=== PATIENT | female | born 1980 | race Caucasian/White ===

== ENCOUNTER 2020-10-13 12:02 | Outpatient (REF) | payer MEDICAID, SELFPAY | END 2020-10-13 12:03 | disposition home or self-care (01) | LOC: HO.LAB 12:02 | PROVIDERS: PCP Internal Medicine; Visit Provider Internal Medicine | DX: Z20.828 Contact with and (suspected) exposure to other viral communicable diseases (principal) | CPT/HCPCS: C9803; U0003 ==

== ENCOUNTER 2020-12-21 13:22 | Outpatient (REF) | payer MEDICAID, SELFPAY ==
[2020-12-22 09:18] LABS: BV Int Neg Control Negative (Negative); BV Int Pos Control Positive (Positive)
[2020-12-22 15:32] LABS: C. trachomatis RNA TMA NOT DETECTED (NOT DETECTED); N. gonorrhoeae RNA TMA NOT DETECTED (NOT DETECTED)
== END 2020-12-21 13:23 | disposition home or self-care (01) ==
LOC: HO.LAB 13:22
PROVIDERS: PCP Internal Medicine; Visit Provider Advanced Practice Midwife
DX: R10.2 Pelvic and perineal pain (principal); N94.10 Unspecified dyspareunia
CPT/HCPCS: 36415; 81003; 87480; 87491; 87510; 87591; 87660; 99212

== ENCOUNTER 2020-12-28 14:10 | Outpatient (REF) | payer MEDICAID, SELFPAY ==
--- NOTE | ~2020-12-28 | US_ITS ---
EXAMINATION: PELVIC ULTRASOUND CLINICAL INFORMATION: Pain COMPARISON: Previous pelvic ultrasound most recent February [address] of the abdomen and pelvis February 2020 TECHNIQUE: Transabdominal and transvaginal pelvic ultrasound was performed. Transvaginal exam was performed for better visualization of the uterus and ovaries. FINDINGS: The uterus is retroverted and measures 9.8 x 4.5 x 6.3 cm in dimension. No focal uterine lesion is seen. Endometrial thickness is normal measuring 0.7 cm. There are nabothian cysts in the cervix. The right ovary is enlarged and measures 4.7 x 4.1 x 4 cm, volume 40 mL. There is a new 3.9 x 3.5 x 3.3 cm complex cyst with multiple septations. The left ovary measures 2.7 x 1.5 x 2.4 cm. There is a cystic tubular structure adjacent to the left ovary in the left adnexa again questionable for hydrosalpinx. This is similar to previous exam. There is no fluid in the pelvis. US/US pelvic complete IMPRESSION: New 3.9 x 3.5 x 3.3 cm complex right ovarian cyst with multiple septations. This may represent a hemorrhagic cyst. Short-term follow-up pelvic ultrasound in 10-12 weeks following several menstrual cycles recommended. Stable appearing cystic tubular structure in the left adnexa again questionable for hydrosalpinx.
--- NOTE | ~2020-12-28 | US_ITS ---
EXAMINATION: PELVIC ULTRASOUND CLINICAL INFORMATION: Pain COMPARISON: Previous pelvic ultrasound most recent February [address] of the abdomen and pelvis February 2020 TECHNIQUE: Transabdominal and transvaginal pelvic ultrasound was performed. Transvaginal exam was performed for better visualization of the uterus and ovaries. FINDINGS: The uterus is retroverted and measures 9.8 x 4.5 x 6.3 cm in dimension. No focal uterine lesion is seen. Endometrial thickness is normal measuring 0.7 cm. There are nabothian cysts in the cervix. The right ovary is enlarged and measures 4.7 x 4.1 x 4 cm, volume 40 mL. There is a new 3.9 x 3.5 x 3.3 cm complex cyst with multiple septations. The left ovary measures 2.7 x 1.5 x 2.4 cm. There is a cystic tubular structure adjacent to the left ovary in the left adnexa again questionable for hydrosalpinx. This is similar to previous exam. There is no fluid in the pelvis. US/US transvaginal IMPRESSION: New 3.9 x 3.5 x 3.3 cm complex right ovarian cyst with multiple septations. This may represent a hemorrhagic cyst. Short-term follow-up pelvic ultrasound in 10-12 weeks following several menstrual cycles recommended. Stable appearing cystic tubular structure in the left adnexa again questionable for hydrosalpinx.
== END 2020-12-28 14:11 | disposition home or self-care (01) ==
LOC: HO.US 14:10
PROVIDERS: Visit Provider Advanced Practice Midwife
DX: R10.2 Pelvic and perineal pain (principal)
CPT/HCPCS: 76830; 76856

== ENCOUNTER → 2020-12-30 09:30 | Outpatient (BNVA) | payer MEDICAID, SELFPAY | PROVIDERS: PCP Internal Medicine; Visit Provider Advanced Practice Midwife | DX: Z71.2 Person consulting for explanation of examination or test findings (principal); R10.2 Pelvic and perineal pain; N70.11 Chronic salpingitis; N83.299 Other ovarian cyst, unspecified side | CPT/HCPCS: 99212 ==

== ENCOUNTER 2020-12-30 11:01 | Outpatient (REF) | payer MEDICAID, SELFPAY ==
[2020-12-31 05:42] LABS: CA-125 7 U/mL (<35)
[2020-12-31 20:51] LABS: C. trachomatis RNA TMA NOT DETECTED (NOT DETECTED); N. gonorrhoeae RNA TMA NOT DETECTED (NOT DETECTED)
== END 2020-12-30 11:02 | disposition home or self-care (01) ==
LOC: HO.LAB 11:01
PROVIDERS: PCP Internal Medicine; Visit Provider Advanced Practice Midwife
DX: N83.299 Other ovarian cyst, unspecified side (principal); R10.2 Pelvic and perineal pain
CPT/HCPCS: 36415; 86304; 87491; 87591

== ENCOUNTER 2021-02-12 14:46 | Emergency (ER) | payer MEDICAID, SELFPAY ==
--- NOTE | ~2021-02-12 | XR_ITS ---
EXAMINATION: XR CHEST CLINICAL INFORMATION: covid COMPARISON: 12/02/2018 TECHNIQUE: Frontal view of the chest was obtained. FINDINGS: Bilateral airspace opacities are seen here. Consistent with areas of infiltrate. No effusion. Indistinct mediastinal structures XR/XR chest 1V IMPRESSION: Bilateral airspace disease consistent with infiltrate given the history.
[2021-02-12 14:59] VITALS: BP 112/70; PULSE 100; RESP 18; TEMP 36.9; O2SAT 100; BMI 23.8
[2021-02-12 16:20] VITALS: BP 115/73; PULSE 91; RESP 20; TEMP 36.7; O2SAT 100
--- NOTE | 2021-02-12 16:24 | ED_ITS ---
HPI - General Adult General Chief complaint: General Medical Stated complaint: mutiple complaint Time Seen by Provider: 02/12/21 16:23 Source: patient Mode of arrival: ambulatory Limitations: language barrier History of Present Illness HPI narrative: Patient diagnosed with COVID on 02/01 since then not eating well feeling weak for last 2 days feeling dizzy especially when moving her head to right or left side. Also patient complaining of cough low-grade fever no loss of taste sensations patient does have a complex ovarian cyst patient denied any significant shortness of breath was saturating 100% on room air when she arrived Related Data Home Medications Medication Instructions Recorded Confirmed alprazolam 1 mg tablet 1 mg PO BEDTIME 12/21/20 tramadol 50 mg tablet 50 mg PO DAILY 12/21/20 Previous Rx's Medication Instructions Recorded azithromycin [Zithromax] 250 mg PO DAILY 4 Days #4 tab 02/12/21 cefuroxime axetil 500 mg PO BID #20 tab 02/12/21 codeine-guaifenesin 10 ml PO Q4-6H PRN #200 ml 02/12/21 dexamethasone [Decadron] 6 mg PO DAILY #7 tab 02/12/21 meclizine 25 mg PO TID PRN #14 tab 02/12/21 Allergies Allergy/AdvReac Type Severity Reaction Status Date / Time acetaminophen [From PERCOCET] Allergy Unknown TACHYCARDIA Verified 12/30/20 10: 26 nitrofurantoin Allergy Unknown Unknown Verified 12/30/20 10:26 oxycodone [From PERCOCET] Allergy Unknown TACHYCARDIA Verified 12/30/20 10:26 Review of Systems Review of Systems: Constitutional : No Weight loss, No Fever, No Chills ENT/Mouth : No sore throat, No Rhinorrhea Eyes: No Eye Pain, No Swelling Cardiovascular : No Chest Pain, no palpitations Respiratory : No Cough, No Sputum, no shortness of breath Gastrointestinal : no Nausea, No Vomiting, No Diarrhea, No abdominal Pain, no black stools Genitourinary : No Dysuria, No Urinary Frequency Musculoskeletal : No joint pain, +Myalgias, No Joint Swelling Skin : No Skin Lesions, No rash Neuro : ++ Weakness, No Numbness, ++ Dizziness, No Headache Psych : No Anxiety/Panic, No Depression Heme/Lymph: No Bruising, No Lymphadenopathy Endocrine : No Polyuria, No Polydipsia All other systems reviewed and are negative PMFSH Past Medical History Medical History History of anxiety History of depression Panic attack Surgical History Hx of section Hx of cholecystectomy Hx of tubal ligation Family History Family History Paternal Grandmother History of breast cancer Social History Social History Smoked in Last 30 Days: No Use of substances other than those prescribed or required for medical reasons: No Advance Directives: No Advance Directives Information Provided: Yes Physical Exam Vital Signs: Vital Signs: Last Vital Signs Temp 98.0 F 02/12/21 16:20 Pulse 83 02/12/21 20:00 Resp 16 02/12/21 20:00 BP 115/73 02/12/21 16:20 Pulse Ox 98 02/12/21 20:00 Body Mass Index 23.8 Appearance: Alert. Oriented X3. No acute distress. Eyes: Pupils equal, round and reactive to light. ENT: Pharynx normal. No nystagmus increased dizziness on turning the head to the right tympanic membrane intact Neck: Normal inspection. Neck supple. CVS: Normal heart rate and rhythm. Pulses normal. Respiratory: No respiratory distress. Breath sounds normal. Abdomen: Soft and nontender. Bowel sounds are present, no mass palpable, no CVA tenderness Skin: Skin warm and dry. Normal skin color. Normal skin turgor. Extremities: No lower extremity edema. Neuro: Oriented X 3. No motor deficit. No sensory deficit. Medical Decision Making MDM Narrative Medical decision making narrative: Patient's COVID-19 ovarian cyst elevated LFTs in the past came with dizziness clinically patient has benign positional vertigo labs are stable as such except elevated LFT. Patient received IV fluids feeling much better now will start her on Decadron Zithromax Ceftin and cough syrup advised to follow with her PCP Lab Data Lab results reviewed: Yes I reviewed the patient's lab results. Result diagrams: 02/12/21 16:29 02/12/21 16:29 Labs: Lab Results 02/12/21 02/12/21 02/12/21 Range/Units 16:29 16:29 16:29 WBC 5.3 (4.8-10.8) X10*3/uL RBC 5.08 (4.20-5.50) X10*6/uL Hgb 13.6 (12.0-16.0) g/dl Hct 42.1 (37-47) % MCV 82.9 (80-98) fL MCH 26.8 L (27.0-33.0) pg MCHC 32.3 (31.0-35.0) g/dl RDW 13.7 (11.0-16.0) % Plt Count 380 (160-400) X10*3/uL MPV 9.7 (9.4-12.3) fL Immature Gran % (Auto) 0.6 H (0.0-0.4) % Neut % (Auto) 46.1 (45-73) % Lymph % (Auto) 39.9 (20-40) % [place] % (Auto) 11.9 H (2-11) % Eos % (Auto) 1.3 (0-4) % Baso % (Auto) 0.2 (0-2) % Lymph # (Auto) 2.1 (1.2-4.9) X10*3/uL [place] # (Auto) 0.6 (0.1-1.2) X10*3/uL Eos # (Auto) 0.1 (0.0-0.4) X10*3/uL Baso # (Auto) 0.0 (0.0-0.2) X10*3/uL Abs Immat Gran (auto) 0.03 (0.00-0.03) X10*3/uL Absolute Neuts (auto) 2.5 (2.0-8.3) X10*3/uL Absolute Nucleated RBC 0.000 (0.0-0.012) X10*3/uL Nucleated RBC % (auto) 0.0 (0.0-0.2) /100WBC Smear Tech's Comments VERIFIED Hold Purple Top SEE NOTE Hold Blue Top SEE NOTE Sodium (135-145) mmol/L Potassium (3.3-5.1) mmol/L Chloride (96-108) mmol/L Carbon Dioxide (22-29) mmol/L Anion Gap (12-20) BUN (9-16) mg/dL Creatinine (0.5-1.4) mg/dL Estim Creat Clear Calc Estimated GFR Random Glucose (60-115) mg/dL Calcium (8.4-10.2) mg/dL Total Bilirubin (0.0-1.0) mg/dL Direct Bilirubin (0.0-0.5) mg/dL AST (5-31) U/L ALT (0-31) U/L Alkaline Phosphatase (39-117) U/L Total Protein (6.5-8.0) g/dL Albumin (3.5-5.0) g/dL Lipase (8-78) U/L 02/12/21 Range/Units 16:29 WBC (4.8-10.8) X10*3/uL RBC (4.20-5.50) X10*6/uL Hgb (12.0-16.0) g/dl Hct (37-47) % MCV (80-98) fL MCH (27.0-33.0) pg MCHC (31.0-35.0) g/dl RDW (11.0-16.0) % Plt Count (160-400) X10*3/uL MPV (9.4-12.3) fL Immature Gran % (Auto) (0.0-0.4) % Neut % (Auto) (45-73) % Lymph % (Auto) (20-40) % [place] % (Auto) (2-11) % Eos % (Auto) (0-4) % Baso % (Auto) (0-2) % Lymph # (Auto) (1.2-4.9) X10*3/uL [place] # (Auto) (0.1-1.2) X10*3/uL Eos # (Auto) (0.0-0.4) X10*3/uL Baso # (Auto) (0.0-0.2) X10*3/uL Abs Immat Gran (auto) (0.00-0.03) X10*3/uL Absolute Neuts (auto) (2.0-8.3) X10*3/uL Absolute Nucleated RBC (0.0-0.012) X10*3/uL Nucleated RBC % (auto) (0.0-0.2) /100WBC Smear Tech's Comments Hold Purple Top Hold Blue Top Sodium 142 (135-145) mmol/L Potassium 3.9 (3.3-5.1) mmol/L Chloride 105 (96-108) mmol/L Carbon Dioxide 24 (22-29) mmol/L Anion Gap 17 (12-20) BUN 8 L (9-16) mg/dL Creatinine 0.67 (0.5-1.4) mg/dL Estim Creat Clear Calc 85.6 Estimated GFR > 60 Random Glucose 97 (60-115) mg/dL Calcium 8.1 L (8.4-10.2) mg/dL Total Bilirubin 0.5 (0.0-1.0) mg/dL Direct Bilirubin 0.2 (0.0-0.5) mg/dL AST 66 H (5-31) U/L ALT 151 H (0-31) U/L Alkaline Phosphatase 151 H (39-117) U/L Total Protein 7.3 (6.5-8.0) g/dL Albumin 3.5 (3.5-5.0) g/dL Lipase 47 (8-78) U/L Discharge Plan Discharge Clinical Impression: COVID-19 Benign paroxysmal positional vertigo Qualifiers: Laterality: bilateral Qualified Code(s): H81.13 - Benign paroxysmal vertigo, bilateral Patient Disposition: Home, Self-Care Instructions: Benign Paroxysmal Positional Vertigo (ED), COVID-19 (Coronavirus Disease 2019) (ED) Additional Instructions: Drink plenty of fluid take medication as prescribed follow-up with your PCP if not better Report to the ER if increased shortness of breath Prescriptions: New dexamethasone [Decadron] 6 mg tablet 6 mg PO DAILY Qty: 7 RF: 0 codeine-guaifenesin 10-100 mg/5 mL liquid 10 ml PO Q4-6H PRN (Reason: Cough) Qty: 200 RF: 0 cefuroxime axetil 500 mg tablet 500 mg PO BID Qty: 20 RF: 0 azithromycin [Zithromax] 250 mg tablet 250 mg PO DAILY 4 Days Qty: 4 RF: 0 meclizine 25 mg tablet 25 mg PO TID PRN (Reason: dizziness) Qty: 14 RF: 0 No Action tramadol 50 mg tablet 50 mg PO DAILY RF: 0 alprazolam [Xanax] 1 mg tablet 1 mg PO BEDTIME RF: 0 Print Language: Sami
[2021-02-12 16:40] LABS: Basophils Percent Auto 0.2 % (0-2); Eosinophils Absolute Auto 0.1 X10*3/uL (0.0-0.4); Eosinophils Percent Auto 1.3 % (0-4); Hematocrit 42.1 % (37-47); Hemoglobin 13.6 g/dl (12.0-16.0); Imm Gran Abs Auto 0.03 X10*3/uL (0.00-0.03); Imm Gran Pct Auto 0.6 % (0.0-0.4); Lymphocytes Absolute Auto 2.1 X10*3/uL (1.2-4.9); Lymphocytes Percent Auto 39.9 % (20-40); MANUAL DIFF FLAG SCAN; Mean Corpuscular HGB Conc 32.3 g/dl (31.0-35.0); Mean Corpuscular Hemoglobin 26.8 pg (27.0-33.0); Mean Corpuscular Volume 82.9 fL (80-98); Mean Platelet Volume 9.7 fL (9.4-12.3); Monocytes Absolute Auto 0.6 X10*3/uL (0.1-1.2); Monocytes Percent Auto 11.9 % (2-11); Neutrophils Absolute Auto 2.5 X10*3/uL (2.0-8.3); Neutrophils Percent Auto 46.1 % (45-73); Platelet Count 380 X10*3/uL (160-400); Red Blood Count 5.08 X10*6/uL (4.20-5.50); Red Cell Distribution Width 13.7 % (11.0-16.0); SCAN SMEAR FLAG 1; White Blood Count 5.3 X10*3/uL (4.8-10.8)
[2021-02-12] MEDS: 0.9 % Sodium Chloride 1,000 ML 999 ML IVCONT (16:47)
[2021-02-12] MEDS: Meclizine HCl 25 MG TABLET PO (16:53)
[2021-02-12 17:07] LABS: Anion Gap 17 (12-20); Blood Urea Nitrogen 8 mg/dL (9-16); Calcium 8.1 mg/dL (8.4-10.2); Carbon Dioxide 24 mmol/L (22-29); Chloride 105 mmol/L (96-108); Creatinine Clr Calc Pharmacy 85.6; Estimated Glomerular Filt Rate > 60; Glucose Random 97 mg/dL (60-115); Potassium 3.9 mmol/L (3.3-5.1); Sodium 142 mmol/L (135-145)
[2021-02-12 17:18] LABS: Alanine Aminotransferase 151 U/L (0-31); Albumin Level 3.5 g/dL (3.5-5.0); Alkaline Phosphatase 151 U/L (39-117); Aspartate Amino Transferase 66 U/L (5-31); Bilirubin Direct 0.2 mg/dL (0.0-0.5); Bilirubin Total 0.5 mg/dL (0.0-1.0); Lipase 47 U/L (8-78); Total Protein 7.3 g/dL (6.5-8.0)
[2021-02-12 17:26] LABS: SLIDE REVIEW VERIFIED
[2021-02-12] MEDS: Azithromycin 500 MG TABLET PO (19:02)
[2021-02-12] MEDS: dexAMETHasone sod phosphate 4 MG/ML VIAL 6 MG IVPUSH (19:02)
[2021-02-12 20:00] VITALS: PULSE 83; RESP 16; O2SAT 98
[2021-02-12 21:33] VITALS: BP 116/68; PULSE 75; RESP 18; O2SAT 97
== END 2021-02-12 21:34 | disposition home or self-care (01) ==
PROVIDERS: Emergency Provider Internal Medicine
DX: H81.13 Benign paroxysmal vertigo, bilateral (principal); Z86.16 Personal history of COVID-19; R53.1 Weakness
CPT/HCPCS: 36415; 71045; 80048; 80076; 83690; 85025; 96361; 96374; 99284; J1100

== ENCOUNTER 2021-02-23 15:23 | Outpatient (REF) | payer MEDICAID, SELFPAY ==
[2021-02-23 15:49] LABS: COVID-19 Test Negative (Negative); IDNOW Serial# 55D5AD1C
== END 2021-02-23 15:24 | disposition home or self-care (01) ==
LOC: HO.LAB 15:23
PROVIDERS: Visit Provider Internal Medicine
DX: Z20.822 Contact with and (suspected) exposure to COVID-19 (principal)
CPT/HCPCS: 36415; 87635; C9803

== ENCOUNTER 2021-03-18 11:10 | Outpatient (REF) | payer MEDICAID, SELFPAY ==
--- NOTE | ~2021-03-18 | US_ITS ---
EXAMINATION: US PELVIS COMPLETE US PELVIS TRANSVAGINAL CLINICAL INFORMATION: Ovarian cyst. COMPARISON: Most recent pelvic ultrasound dated 12/28/2020 TECHNIQUE: Transabdominal and transvaginal imaging was performed. FINDINGS: The uterus is of normal size and echogenicity measuring 10.7 x 4.7 x 6.2 cm. A regular homogeneous endometrium is identified measuring 0.8 cm. There are nabothian cysts within the cervix. Both ovaries are of normal size and echogenicity. The right measures 2.3 x 1.7 x 2.2 cm for a volume of 4.5 mL. The previously seen right adnexal probable hemorrhagic cyst is no longer identified. The left measures 2.9 x 2.5 x 1.7 cm for a volume of 6.5 mL. Again noted within the left adnexa is a tubular, cystic structure which is unchanged and could represent hydrosalpinx. There is no pelvic free fluid. US/US transvaginal IMPRESSION: 1. Resolution of the previously seen right adnexal hemorrhagic cyst. 2. Stable tubular cystic structure in the left adnexa which is unchanged and could represent hydrosalpinx. 3. Sonographically unremarkable uterus and endometrium.
--- NOTE | ~2021-03-18 | US_ITS ---
EXAMINATION: US PELVIS COMPLETE US PELVIS TRANSVAGINAL CLINICAL INFORMATION: Ovarian cyst. COMPARISON: Most recent pelvic ultrasound dated 12/28/2020 TECHNIQUE: Transabdominal and transvaginal imaging was performed. FINDINGS: The uterus is of normal size and echogenicity measuring 10.7 x 4.7 x 6.2 cm. A regular homogeneous endometrium is identified measuring 0.8 cm. There are nabothian cysts within the cervix. Both ovaries are of normal size and echogenicity. The right measures 2.3 x 1.7 x 2.2 cm for a volume of 4.5 mL. The previously seen right adnexal probable hemorrhagic cyst is no longer identified. The left measures 2.9 x 2.5 x 1.7 cm for a volume of 6.5 mL. Again noted within the left adnexa is a tubular, cystic structure which is unchanged and could represent hydrosalpinx. There is no pelvic free fluid. US/US pelvic complete IMPRESSION: 1. Resolution of the previously seen right adnexal hemorrhagic cyst. 2. Stable tubular cystic structure in the left adnexa which is unchanged and could represent hydrosalpinx. 3. Sonographically unremarkable uterus and endometrium.
== END 2021-03-18 11:11 | disposition home or self-care (01) ==
LOC: HO.US 11:10
PROVIDERS: Visit Provider Advanced Practice Midwife
DX: N83.299 Other ovarian cyst, unspecified side (principal)
CPT/HCPCS: 76830; 76856

== ENCOUNTER → 2021-03-24 11:38 | Outpatient (BNVA) | payer MEDICAID, SELFPAY | PROVIDERS: Visit Provider Advanced Practice Midwife ==

== ENCOUNTER → 2021-03-31 11:24 | Outpatient (BNVA) | payer MEDICAID, SELFPAY | PROVIDERS: Visit Provider Obstetrics & Gynecology | DX: R10.2 Pelvic and perineal pain (principal) | CPT/HCPCS: 81003; 81025; 99212 ==

== ENCOUNTER → 2021-04-15 15:47 | Outpatient (BNVA) | payer MEDICAID, SELFPAY | PROVIDERS: PCP Internal Medicine; Visit Provider Anesthesiology | DX: R10.2 Pelvic and perineal pain (principal); G89.4 Chronic pain syndrome | CPT/HCPCS: 99202 ==

== ENCOUNTER 2021-05-12 15:53 | Outpatient (REF) | payer MEDICAID, SELFPAY | END 2021-05-12 15:54 | disposition home or self-care (01) | LOC: HO.MRI 15:53 | PROVIDERS: Visit Provider Anesthesiology | DX: Z13.89 Encounter for screening for other disorder (principal) ==

== ENCOUNTER 2021-06-29 06:24 | Outpatient (REF) | payer MEDICAID, SELFPAY | END 2021-06-29 06:25 | disposition home or self-care (01) | LOC: HO.RADIR 06:24 | PROVIDERS: Visit Provider Anesthesiology | DX: Z13.89 Encounter for screening for other disorder (principal) ==

== ENCOUNTER 2021-08-03 06:13 | Outpatient (REF) | payer MEDICAID, SELFPAY | END 2021-08-03 06:14 | disposition home or self-care (01) | LOC: HO.RADIR 06:13 | PROVIDERS: Visit Provider Anesthesiology | DX: Z13.89 Encounter for screening for other disorder (principal) | CPT/HCPCS: Q9967 ==

== ENCOUNTER 2021-08-12 09:20 | Outpatient (REF) | payer MEDICAID, SELFPAY ==
--- NOTE | ~2021-08-12 | CT_ITS ---
EXAMINATION: CT ABDOMEN AND PELVIS WITHOUT CONTRAST CLINICAL INFORMATION: Calculus of kidney. COMPARISON: Most recent pelvic ultrasound dated 03/18/2021. Most recent CT abdomen/pelvis dated 03/11/2020. TECHNIQUE: Multidetector volumetric imaging was performed from the superior aspect of the liver through the pubic symphysis. Sagittal and coronal reformatted images were obtained on the technologist's workstation. This CT examination was performed using dose optimization techniques as appropriate, variously including the following: *Automated exposure control *Adjustment of mA and/or kV according to patient size (this includes techniques or standardized protocols for targeted exams where dose is matched to indication/reason for exam; i.e. extremities or head) *Use of iterative reconstruction technique DLP: 468 mGy-cm FINDINGS: LUNG BASES: The visualized lung bases are unremarkable. LIVER, GALLBLADDER, AND BILIARY TREE: The liver is normal in size and shape. Parenchymal hypoattenuation, consistent with steatosis. No focal hepatic lesion or biliary ductal dilatation is present. Status post cholecystectomy. PANCREAS: Unremarkable. SPLEEN: Unremarkable. ADRENAL GLANDS: Unremarkable. KIDNEYS AND URETERS: The kidneys are normal in size, shape, and attenuation. Multiple right-sided renal stones measuring up to 0.4 cm within the upper pole, unchanged. Multiple left-sided renal stones measuring up to 0.3 cm within the mid and lower poles, unchanged. No ureteral stone. No hydronephrosis or hydroureter. BLADDER: Nondistended and unremarkable. GASTROINTESTINAL TRACT: No bowel wall thickening or associated inflammatory change. No small or large bowel obstruction. Unremarkable appendix. PERITONEAL CAVITY: No intra-abdominal free air or free fluid. ABDOMINAL WALL: No significant hernia is appreciated. LYMPH NODES: Stable, mildly prominent bilateral inguinal lymph nodes, not significantly changed. No new or increasing lymphadenopathy. VASCULAR: Unremarkable. PELVIC VISCERA: Redemonstration of a tubular cystic structure in the left adnexa, not significantly changed and likely representing hydrosalpinx. There is a new complex left adnexal cystic structure measuring up to 4.3 cm, not seen on the prior examinations. Pelvic ultrasound could help further evaluate if clinically indicated. OSSEOUS STRUCTURES: Unremarkable. CT/CT abdomen pelvis wo con IMPRESSION: 1. Multiple bilateral renal stones measuring up to 0.4 cm on the right and 0.3 cm on the left, not significantly changed. No new ureteral stone. No hydronephrosis or hydroureter. Nondistended and unremarkable urinary bladder. 2. New, complex cystic focus within the left adnexa measuring up to 4.3 cm, not seen on the most recent examination. Pelvic ultrasound could help further evaluate if clinically indicated. Stable, tubular cystic structure in the left adnexa, likely representing hydrosalpinx and unchanged. 3. Mildly prominent bilateral inguinal lymph nodes, unchanged. No new or increasing lymphadenopathy. 4. Hepatic steatosis. No hepatic parenchymal lesion or biliary ductal dilatation.
== END 2021-08-12 09:21 | disposition home or self-care (01) ==
LOC: HO.CT 09:20
PROVIDERS: Visit Provider Internal Medicine
DX: N20.0 Calculus of kidney (principal)
CPT/HCPCS: 74176

== ENCOUNTER 2021-09-28 06:46 | Outpatient (REF) | payer MEDICAID, SELFPAY | END 2021-09-28 06:47 | disposition home or self-care (01) | LOC: HO.RADIR 06:46 | PROVIDERS: Visit Provider Anesthesiology | DX: Z13.89 Encounter for screening for other disorder (principal) ==

== ENCOUNTER 2022-02-01 13:53 | Outpatient (REF) | payer MEDICAID, SELFPAY ==
--- NOTE | ~2022-02-01 | US_ITS ---
EXAMINATION: US PELVIS CLINICAL INFORMATION: Right ovarian cyst. Pelvic pain. Tubal ligation. . COMPARISON: None. TECHNIQUE: Ultrasound of the pelvis is performed using both transabdominal and transvaginal transducers along with Doppler. Transvaginal imaging is performed due to inadequate visualization transabdominally. FINDINGS: UTERUS: The uterus is anteverted, retroflexed and measures 9.8 x 5.4 x 4.5 cm. The double wall endometrial thickness is 1.2 cm. The uterus is smooth in contour and has normal myometrial echogenicity. No visible fibroid. Small nabothian cysts seen in the cervix. ADNEXA: Both ovaries are visualized. There is normal color flow to the adnexa. There is no ovarian torsion. There is no pelvic ascites or fluid collection. Right ovary measures 2.3 x 1.6 x 1.8 cm and volume 3.5 mL. There is anechoic cyst measuring 0.9 x 0.7 x 0.7 cm. Left ovary measures 3.4 x 2.3 x 2.7 cm and volume 11.1 mL. There is anechoic cyst measuring 2.1 x 1.1 x 1.2 cm. There is a tubular cystic structure in the left adnexa likely hydrosalpinx. This is unchanged. US/US pelvic and transvaginal IMPRESSION: Unremarkable uterus. Small nabothian cysts in the cervix. Bilateral ovarian cysts. Stable left hydrosalpinx.
== END 2022-02-01 13:54 | disposition home or self-care (01) ==
LOC: HO.US 13:53
PROVIDERS: PCP Internal Medicine; Visit Provider General Practice
DX: N70.11 Chronic salpingitis (principal); N83.291 Other ovarian cyst, right side; R10.2 Pelvic and perineal pain
CPT/HCPCS: 76830; 76856

== ENCOUNTER 2022-04-27 12:23 | Outpatient (REF) | payer MEDICAID, SELFPAY ==
[2022-04-27 14:31] LABS: Hematocrit 37.7 % (37.0-47.0); Hemoglobin 12.1 g/dl (12.0-16.0); Mean Corpuscular HGB Conc 32.1 g/dl (31.0-35.0); Mean Corpuscular Hemoglobin 27.6 pg (27.0-33.0); Mean Corpuscular Volume 85.9 fL (80.0-98.0); Mean Platelet Volume 10.1 fL (9.4-12.3); Platelet Count 399 X10*3/uL (160-400); Red Blood Count 4.39 X10*6/uL (4.20-5.50); White Blood Count 10.2 X10*3/uL (4.8-10.8)
[2022-04-27 15:24] LABS: HCG Quantitative < 2 mIU/mL; TSH reflex Free T4 0.98 uIU/mL (0.32-4.0)
[2022-04-27 16:19] LABS: CT PCR NOT DETECTED (Not Detect.); NG PCR NOT DETECTED (Not Detect.)
[2022-05-04 19:06] LABS: HPV mRNA E6/E7 rflx Not Detected (Not Detected)
== END 2022-04-27 12:24 | disposition home or self-care (01) ==
LOC: HO.LAB 12:23
PROVIDERS: PCP Internal Medicine; Visit Provider Obstetrics & Gynecology
DX: Z12.4 Encounter for screening for malignant neoplasm of cervix (principal); Z11.51 Encounter for screening for human papillomavirus (HPV); N93.9 Abnormal uterine and vaginal bleeding, unspecified; R10.2 Pelvic and perineal pain
CPT/HCPCS: 36415; 81003; 81025; 84443; 84702; 85027; 87491; 87591; 87624; 88142; 99212

== ENCOUNTER 2022-04-28 14:09 | Outpatient (REF) | payer MEDICAID, SELFPAY ==
--- NOTE | ~2022-04-28 | MM_ITS ---
EXAMINATION: MM SCREENING DIGITAL BREAST TOMOSYNTHESIS, BILATERAL CLINICAL INFORMATION: Screening. Asymptomatic. The lifetime risk of breast cancer based on the Tyrer-Cuzick Model is 10%. COMPARISON: Mammography: 07/11/2019, 02/16/2018 TECHNIQUE: Digital breast tomosynthesis is performed in both the craniocaudal and mediolateral oblique views along with computer-aided detection (CAD). Synthesized 2D images are generated from the tomosynthesis. FINDINGS: There are scattered areas of fibroglandular density (ACR BI-RADS breast composition Category b). There is fine fibronodular parenchymal pattern similar to prior exam. No significant mass or architectural abnormality or developing density. No abnormal calcifications. The axilla and skin contours are unremarkable. MM/MM tomosynthesis screening BI IMPRESSION: No mammographic evidence of malignancy. ASSESSMENT: BI-RADS 2: Benign RECOMMENDATION: Routine annual mammography screening. This patient's information was entered into a reminder system with a target due date for their next mammogram.
== END 2022-04-28 14:10 | disposition home or self-care (01) ==
LOC: HO.MAMMO 14:09
PROVIDERS: PCP Internal Medicine; Visit Provider Internal Medicine
DX: Z12.31 Encounter for screening mammogram for malignant neoplasm of breast (principal)
CPT/HCPCS: 77063; 77067

== ENCOUNTER 2022-05-10 09:17 | Outpatient (REF) | payer MEDICAID, SELFPAY | END 2022-05-10 09:18 | disposition home or self-care (01) | LOC: HO.LAB 09:17 | PROVIDERS: Visit Provider Obstetrics & Gynecology | DX: N93.9 Abnormal uterine and vaginal bleeding, unspecified (principal) | CPT/HCPCS: 58100; 88305 ==

== ENCOUNTER → 2022-06-01 09:45 | Outpatient (BNVA) | payer MEDICAID, SELFPAY | PROVIDERS: PCP Internal Medicine; Visit Provider Obstetrics & Gynecology | DX: N93.9 Abnormal uterine and vaginal bleeding, unspecified (principal); N70.11 Chronic salpingitis; Z03.79 Encounter for other suspected maternal and fetal conditions ruled out; Z71.2 Person consulting for explanation of examination or test findings | CPT/HCPCS: 99212 ==

== ENCOUNTER 2022-06-24 11:02 | Outpatient (REF) | payer MEDICAID, SELFPAY ==
--- NOTE | ~2022-06-24 | US_ITS ---
EXAMINATION: US PELVIS COMPLETE CLINICAL INFORMATION: Pain COMPARISON: Pelvic ultrasound 02/01/2022 TECHNIQUE: Transabdominal and transvaginal imaging was performed. FINDINGS: The uterus is of normal size and echogenicity measuring 11.2 x 4.8 x 6.8 cm. This is retroverted in position. A regular homogeneous endometrium is identified measuring 1.0 cm. Nabothian cysts in the cervix. Both ovaries are of normal echogenicity and appearance. The right measures 2.7 x 1.6 x 1.9 cm for a volume of 4.3 mL. The left measures 3.8 x 2.7 x 3.0 cm for a volume of 16.1 mL. Redemonstration of a dilated tubular structure in the left adnexa compatible with a hydrosalpinx. There is no pelvic free fluid. US/US pelvic and transvaginal IMPRESSION: Again seen is a dilated tubular structure in the left adnexa compatible with a hydrosalpinx. Uterus is retroverted in position and otherwise unremarkable. Unremarkable sonographic appearance of the ovaries.
== END 2022-06-24 11:03 | disposition home or self-care (01) ==
LOC: HO.US 11:02
PROVIDERS: Visit Provider Internal Medicine
DX: R10.2 Pelvic and perineal pain (principal); M54.50 Low back pain, unspecified
CPT/HCPCS: 76830; 76856

== ENCOUNTER → 2022-06-28 11:00 | Outpatient (BNVA) | payer MEDICAID, SELFPAY | PROVIDERS: PCP Internal Medicine; Visit Provider Obstetrics & Gynecology | DX: R10.2 Pelvic and perineal pain (principal) | CPT/HCPCS: 99212 ==

== ENCOUNTER 2022-08-03 00:44 | Emergency (ER) | payer MEDICAID, SELFPAY ==
--- NOTE | ~2022-08-03 | XR_ITS ---
EXAMINATION: XR CHEST CLINICAL INFORMATION: Chest pain COMPARISON: 02/12/2021 TECHNIQUE: Frontal view of the chest was obtained. FINDINGS: The lungs are clear with no focal consolidation. No evidence of pneumothorax, pulmonary edema, or pleural effusions. The cardiomediastinal silhouette is unremarkable. No acute osseous findings. XR/XR chest 1V IMPRESSION: No acute cardiopulmonary findings.
--- NOTE | 2022-08-03 01:00 | ECG_ITS ---
Test Reason : chest pain Blood Pressure : / mmHG Vent. Rate : 069 BPM Atrial Rate : 069 BPM P-R Int : 150 ms QRS Dur : 074 ms QT Int : 406 ms P-R-T Axes : 049 021 -01 degrees QTc Int : 435 ms Normal sinus rhythm Nonspecific T wave abnormality Abnormal ECG When compared with ECG of 02-DEC-2018 12:02, No significant change was found Referred By: Generic ED Physician Electronically Signed By:MORENA GRAY
[2022-08-03 01:02] VITALS: BP 141/64; PULSE 67; RESP 18; TEMP 37; O2SAT 100; BMI 27.4
--- NOTE | 2022-08-03 01:43 | ED.CHESTPAIN ---
HPI - Chest Pain General Chief Complaint: Chest Pain Stated Complaint: chest pain Time Seen by Provider: 08/03/22 01:42 Source: patient Mode of arrival: ambulatory Limitations: no limitations History of Present Illness HPI narrative: Patient with no cardiac history complaining of chest pain for last 2 with localized to 2nd intercostal space on left side increased on palpation and movement no shortness of breath patient also does have pain in the upper back no nausea no vomiting patient has seen his PCP will give him baclofen and naproxen Related Data Home Medications Medication Instructions Recorded Confirmed alprazolam 1 mg tablet (Xanax) 1 mg PO BEDTIME 12/21/20 03/31/21 tramadol 50 mg tablet 50 mg PO DAILY 12/21/20 03/31/21 sennosides 8.6 mg capsule (senna) 8.6 mg PO BEDTIME 04/27/22 Previous Rx's Medication Instructions Recorded cefuroxime axetil 500 mg tablet 500 mg PO BID #20 tabs 02/12/21 codeine 10 mg-guaifenesin 100 mg/5 10 ml PO Q4-6H PRN Cough #200 mL 02/12/21 mL oral liquid meclizine 25 mg tablet 25 mg PO TID PRN dizziness #14 tabs 02/12/21 tranexamic acid 650 mg tablet 1,300 mg PO TID 5 days #30 tabs 06/01/22 (Lysteda) Allergies Allergy/AdvReac Type Severity Reaction Status Date / Time nitrofurantoin Allergy Unknown Unknown Verified 08/03/22 01:06 Review of Systems Review of Systems: Yes all other systems are reviewed and are negative PMFSH Past Medical History Medical History Chronic pain syndrome History of anxiety History of depression Lumbar radiculopathy, chronic Panic attack Surgical History Hx of section Hx of cholecystectomy Hx of tubal ligation Family History Family History Paternal Grandmother History of breast cancer Social History Social History Advance Directives: No Advance Directives Information Provided: Yes Physical Exam Vital Signs: Vital Signs: Last Vital Signs Temp 98.5 F 08/03/22 02:15 Pulse 58 08/03/22 02:15 Resp 18 08/03/22 02:15 BP 130/69 08/03/22 02:15 Pulse Ox 100 08/03/22 02:15 O2 Del Method 08/03/22 02:15 BMI result Body Mass Index 27.4 Appearance: Alert. Oriented X3. No acute distress. Eyes: PERRLA, No Nystagmus ENT: Pharynx normal. Oral Mucosa moist Neck: Normal inspection. Neck supple. CVS: Normal heart rate and rhythm. Pulses normal. Respiratory: No respiratory distress. Equal air entry bilateral, no wheezing/rales/rhonchi tender to touch left 2nd intercostal space Abdomen: Soft and nontender. Bowel sounds are present, no mass palpable, no CVA tenderness Skin: Skin warm and dry. Normal skin color. Normal skin turgor. Extremities: No lower extremity edema. No calf tenderness Neuro: Oriented X 3. No motor deficit. No sensory deficit.No cerebellar signs , cranial nerves II-XII intact MDM - Chest Pain MDM Narrative Medical decision making narrative: Patient clinically costochondritis with tenderness to left 2nd intercostal space negative troponin negative EKG discharge patient Lab Data Attestation: I reviewed the patient's lab results. Result diagrams: 08/03/22 01:32 08/03/22 01:32 Labs: Lab Results 08/03/22 08/03/22 08/03/22 Range/Units 01:31 01:32 01:32 WBC Cancelled RBC Cancelled Hgb Cancelled Hct Cancelled MCV Cancelled MCH Cancelled MCHC Cancelled RDW Cancelled Plt Count Cancelled MPV Cancelled Immature Gran % (Auto) Cancelled Neut % (Auto) Cancelled Lymph % (Auto) Cancelled Haskell % (Auto) Cancelled Eos % (Auto) Cancelled Baso % (Auto) Cancelled Lymph # (Auto) Cancelled Haskell # (Auto) Cancelled Eos # (Auto) Cancelled Baso # (Auto) Cancelled Abs Immat Gran (auto) Cancelled Absolute Neuts (auto) Cancelled Absolute Nucleated RBC Cancelled Nucleated RBC % (auto) Cancelled Sodium 143 (135-145) mmol/L Potassium 4.6 (3.3-5.1) mmol/L Chloride 110 H (96-108) mmol/L Carbon Dioxide 23 (22-29) mmol/L Anion Gap 15 (12-20) BUN 12 (9-16) mg/dL Creatinine 0.70 (0.5-1.4) mg/dL Estim Creat Clear Calc 100.1 Estimated GFR > 60 Random Glucose 133 H (60-115) mg/dL Calcium 9.1 D (8.4-10.2) mg/dL Troponin I High Sens < 3.5 (<3.5-17.0) ng/L ECG Data ECG #1: Attestation: I personally reviewed and interpreted this ECG as follows: Interpretation: Normal sinus rhythm heart rate 69 beats per minute normal interval normal axis no acute ST T wave changes Discharge Plan Discharge Clinical Impression: Costalchondritis Patient Disposition: Home, Self-Care Instructions: Costochondritis (ED) Additional Instructions: CONTINUE PAIN MEDICATION PRESCRIBED BY PCP FOLLOW WITH HIM Prescriptions: No Action codeine-guaifenesin 10-100 mg/5 mL liquid 10 ml PO Q4-6H PRN (Reason: Cough) Qty: 200 0RF cefuroxime axetil 500 mg tablet 500 mg PO BID Qty: 20 0RF meclizine 25 mg tablet 25 mg PO TID PRN (Reason: dizziness) Qty: 14 0RF tramadol 50 mg tablet 50 mg PO DAILY alprazolam [Xanax] 1 mg tablet 1 mg PO BEDTIME tranexamic acid [Lysteda] 650 mg tablet 1,300 mg PO TID 5 Days Qty: 30 2RF Rx Instructions: Start 1st day of menses and take it up to 3-5 days of menses. senna 8.6 mg capsule 8.6 mg PO BEDTIME Print Language: [place] Citizen
--- OUTSIDE RECORDS SUMMARY | 2022-08-03 01:46 | XMS_ITS | Continuity of Care Document ---
:1980 Author Organization [facility] [employer] DIRECT[employer] Oncology Address [address] [place] [address]- Care Team Providers Name Role Phone Marilee Stallworth MD Primary Care Physician Encounter [facility] [place] Date(s): 01/04/21 - 02/20/21 [facility] [employer] DIRECT[employer] Oncology [address] [place] [id number] Attending Physician: Diann Forman MD Admitting Physician: Diann Forman MD Referring Physician: Fabi Reilly CNM, I Allergies, Adverse Reactions, Alerts Substance Reaction Severity Status nitrofurantoin Active Percocet 5/325 palpitations Active Medications escitalopram 20 mg oral tablet 1 tablet = 20 mg, By Mouth, Daily, # 30 tablet, 0 Refills, Maintenance, 10/10/18 15:40:20 EST, Tablet Start Date: 10/10/18 Status: Orderedibuprofen 600 mg oral tablet 600 mg, 1, tablet, By Mouth, Every 6 hours, # 30 tablet, Refills 0, Tot. Refills 0, Maintenance, 01/27/17 21:45:12, Print Requisition Start Date: 01/27/17 Status: OrderedPropranolol Hydrochloride ER 120 mg oral capsule, extended release 1 capsule = 120 mg, By Mouth, Daily, 0 Refills, Maintenance, 10/10/18 15:40:39 EST Start Date: 10/10/18 Status: Orderedranitidine 150 mg oral tablet 1 tablet = 150 mg, By Mouth, Daily at bedtime, # 14 tablet, 0 Refills, Maintenance, 10/12/16 14:43:42, Tablet Start Date: 10/12/16 Status: OrderedTylenol 325 mg oral capsule 2 capsule = 650 mg, By Mouth, Every 4 hours, PRN as needed for pain, not to exceed 4000 mg/day, # 50capsule, 0 Refills, Maintenance, 09/19/18 20:31:17 EST, Capsule Start Date: 09/19/18 Status: OrderedXanax 1 mg oral tablet See Instructions, 1.5 tablets By Mouth 3 times a day, as needed for anxiety, 0 Refills, Maintenance,08/24/18 4:00:05 EDT, Tablet Start Date: 08/24/18 Status: OrderedZofran ODT 4 mg oral tablet, disintegrating 1 tablet = 4 mg, By Mouth, 3 times a day, PRN Vomiting, # 10 tablet, 0 Refills, Maintenance, 09/19/18 23:35:24 EST Start Date: 09/19/18 Status: Ordered Problem List Condition Effective Dates Status Health Status Informant Anxiety(Confirmed) Active Acid reflux(Confirmed) Active Hydronephrosis(Confirmed) Active Staghorn calculus(Confirmed) Active Social History Social History Type Response Smoking Status Never smoker entered on: 10/12/16 Sex
--- OUTSIDE RECORDS SUMMARY | 2022-08-03 01:46 | XMS_ITS | Continuity of Care Document ---
:1980 Author Organization [facility] LANDSCAPE SUPERVISOR Oncology Address [address] [place] [id number]- Care Team Providers Name Role Phone Marilee Stallworth MD Primary Care Physician Encounter [facility] [place] Date(s): 01/21/21 - 02/20/21 [facility] [employer]ANDSCAPE SUPERVISOR Oncology [address] [place] [phone]- Attending Physician: Sixto Fall Admitting Physician: AdmtrSixto Referring Physician: Admtr, Ar8 Allergies, Adverse Reactions, Alerts Substance Reaction Severity [...]
--- OUTSIDE RECORDS SUMMARY | 2022-08-03 01:46 | XMS_ITS | Continuity of Care Document ---
:1980 [facility] p Address [address] [place] [phone]- Care Team Providers Name Role Phone Marilee Stallworth MD Primary Care Physician [place] [facility] [place]21 - 09/18/21 [facility] [place] [facility] [address], [address] [place] [id number] Allergies, Adverse Reactions, Alerts Substance Reaction Severity [...]
--- OUTSIDE RECORDS SUMMARY | 2022-08-03 01:46 | XMS_ITS | Continuity of Care Document ---
:1980 Author Organization [facility] Address [address] [place] [address]- Care Team Providers Name Role Phone Marilee Stallworth MD Primary Care Physician Encounter [facility] [place] Date(s): 10/13/21 - 12/24/[address] [address]- Attending Physician: Not on Staff, Attending MD Referring Physician: Marilee Stallworth MD Allergies, Adverse Reactions, Alerts Substance Reaction Severity [...]
--- OUTSIDE RECORDS SUMMARY | 2022-08-03 01:46 | XMS_ITS | Continuity of Care Document ---
:1980 Author Organization [facility] Address [address] [place] [phone]- Care Team Providers Name Role Phone Federica FLORES, Marilee Chin Primary Care Physician Encounter [facility] [place] Date(s): 11/24/21 - 12/24/[address] [address]- Attending Physician: Sixto Fall Admitting Physician: Sixto Fall Referring Physician: Sixto Fall Allergies, Adverse Reactions, Alerts Substance Reaction Severity [...]
--- OUTSIDE RECORDS SUMMARY | 2022-08-03 01:46 | XMS_ITS | Continuity of Care Document ---
:1980 Author Organization [facility] Address [address] [place] [address]- Care Team Providers Name Role Phone Marilee Stallworth MD Primary Care Physician Encounter [facility] [place] Date(s): 11/24/21 - 02/04/[address] [address]- Attending Physician: Not on Staff, Attending MD [...]
--- OUTSIDE RECORDS SUMMARY | 2022-08-03 01:46 | XMS_ITS | Continuity of Care Document ---
:1980 Author Organization [facility] [employer] MAK[employer] Oncology Address [address] [place] [address]- Care Team Providers Name Role Phone Marilee Satllworth MD Primary Care Physician Encounter [facility] [place] Date(s): 01/04/21 - 02/03/21 [facility] [employer] Oncology [address] [place] [id number] Allergies, Adverse Reactions, Alerts Substance Reaction Severity [...]
--- OUTSIDE RECORDS SUMMARY | 2022-08-03 01:46 | XMS_ITS | Continuity of Care Document ---
:1980 [facility] Address [address] [place] [address]- Care Team Providers Name Role Phone Federica FLORES, Marilee Chin Primary Care Physician [place] [facility] [place] 09/22/21 - 10/22/21 [facility] [address] [address]- Allergies, Adverse Reactions, Alerts Substance Reaction Severity [...]
--- OUTSIDE RECORDS SUMMARY | 2022-08-03 01:46 | XMS_ITS | Continuity of Care Document ---
:1980 Author Organization [facility] Address [address] [place] [address]- Care Team Providers Name Role Phone Federica FLORES, Marilee Chin Primary Care Physician Encounter [facility] [place] Date(s): 01/05/22 - 02/04/[address] [address]- Attending Physician: Sixto Fall Admitting Physician: Sixto Fall Referring Physician: AdmtrSixto Allergies, Adverse Reactions, Alerts Substance Reaction Severity [...]
[2022-08-03 01:56] LABS: Troponin-I High Sensitivity < 3.5 ng/L (<3.5-17.0)
[2022-08-03 02:01] LABS: Anion Gap 15 (12-20); Blood Urea Nitrogen 12 mg/dL (9-16); Calcium 9.1 mg/dL (8.4-10.2); Carbon Dioxide 23 mmol/L (22-29); Chloride 110 mmol/L (96-108); Creatinine Clr Calc Pharmacy 100.1; Estimated Glomerular Filt Rate > 60; Glucose Random 133 mg/dL (60-115); Potassium 4.6 mmol/L (3.3-5.1); Sodium 143 mmol/L (135-145)
[2022-08-03 02:15] VITALS: BP 130/69; PULSE 58; RESP 18; TEMP 36.9; O2SAT 100
--- NOTE | 2022-08-03 02:19 | PC.NURSE ---
Pt. resting in room. Pt. c/o chest pain at an 8/10. No SOB.
== END 2022-08-03 03:30 | disposition home or self-care (01) ==
PROVIDERS: Emergency Provider Internal Medicine
DX: M94.0 Chondrocostal junction syndrome [Tietze] (principal); R07.89 Other chest pain; R06.02 Shortness of breath; Z79.899 Other long term (current) drug therapy
CPT/HCPCS: 36415; 71045; 80048; 84484; 93005; 99283; 99284

== ENCOUNTER 2022-09-01 10:43 | Outpatient (REF) | payer MEDICAID, SELFPAY ==
[2022-09-01 15:19] LABS: CT PCR NOT DETECTED (Not Detect.); NG PCR NOT DETECTED (Not Detect.)
== END 2022-09-01 10:44 | disposition home or self-care (01) ==
LOC: HO.LNP 10:43
PROVIDERS: Visit Provider Obstetrics & Gynecology
DX: N93.9 Abnormal uterine and vaginal bleeding, unspecified (principal); R10.2 Pelvic and perineal pain; Z32.02 Encounter for pregnancy test, result negative
CPT/HCPCS: 81025; 87491; 87591; 99212

== ENCOUNTER 2022-09-28 10:29 | Outpatient (REF) | payer MEDICAID, SELFPAY ==
--- NOTE | ~2022-09-28 | US_ITS ---
EXAMINATION: US PELVIS CLINICAL INFORMATION: Lower abdominal pain. COMPARISON: Ultrasound pelvis 06/24/2022. TECHNIQUE: Ultrasound of the pelvis was performed using both transabdominal and transvaginal transducers along with Doppler. Transvaginal imaging was performed due to inadequate visualization transabdominally. FINDINGS: UTERUS: The uterus is anteverted, retroflexed and measures 12.5 x 5.2 x 6.4 cm. The double wall endometrial thickness is 0.8 cm. The uterus is smooth in contour and has normal myometrial echogenicity. No visible fibroid. ADNEXA: Both ovaries are visualized. There is normal color flow to the adnexa. There is no ovarian torsion. There is no pelvic ascites or fluid collection. Right ovary measures 2.0 x 1.5 x 2.3 cm and volume 3.6 mL. It appears unremarkable. Previously, right ovary measured 2.7 x 1.6 x 1.9 cm and volume 4.3 mL. Left ovary measures 2.7 x 2.3 x 2.6 cm and volume 8.5 mL. There is an anechoic cyst measuring 1.4 x 1.3 x 1.6 cm. Previously, left ovary measured 3.8 x 2.7 x 3.0 cm and volume 16 mL. There is a left adnexal curved tubular cystic structure measuring 4.1 x 3.0 x 2.9 cm, likely hydrosalpinx or extraovarian/adnexal cyst. There is no free fluid in the cul-de-sac. US/US pelvic and transvaginal IMPRESSION: Unremarkable uterus. Simple cyst left ovary. Curved tubular cystic structure, likely hydrosalpinx or extraovarian/adnexal cyst. It is unchanged to the previous study of 06/24/2022.
--- NOTE | ~2022-09-28 | US_ITS ---
EXAMINATION: US RETROPERITONEAL LIMITED (RENAL ONLY) CLINICAL INFORMATION: Renal calculus. COMPARISON: CT abdomen and pelvis 08/12/2021. Renal ultrasound 04/06/2020 and 08/16/2018. X-ray abdomen KUB 03/18/2020. TECHNIQUE: Real-time imaging of the kidneys. FINDINGS: RIGHT KIDNEY: 9.8 x 4.9 x 5.5 cm (SAG x AP x TRV). The kidney is normal in size, contour, and echogenicity. Renal cortical thickness is normal. No calculi or focal parenchymal lesions. No hydronephrosis. LEFT KIDNEY: 10.4 x 5.9 x 5.0 cm (SAG x AP x TRV). The kidney is normal in size, contour, and echogenicity. Renal cortical thickness is normal. No focal parenchymal lesions or hydronephrosis. There is an echogenic stone in upper pole measuring 0.2 x 0.2 x 0.2 cm. There is no caliectasis. US/US renal BI IMPRESSION: 1. Nonobstructive echogenic stone upper pole left kidney. On previous CT abdomen exam there were renal calculus in midpole and lower pole left kidney stones 2. The right kidney is unremarkable.
== END 2022-09-28 10:30 | disposition home or self-care (01) ==
LOC: HO.US 10:29
PROVIDERS: Visit Provider Emergency Medicine
DX: N70.11 Chronic salpingitis (principal); N20.0 Calculus of kidney
CPT/HCPCS: 76775; 76830; 76856

== ENCOUNTER 2023-05-24 12:08 | Outpatient (REF) | payer MEDICAID, SELFPAY ==
[2023-05-24 13:04] LABS: MANUAL DIFF FLAG NO
[2023-05-24 13:35] LABS: Basophils Absolute Auto 0.1 X10*3/uL (0.0-0.2); Basophils Percent Auto 0.6 % (0-2); Eosinophils Absolute Auto 0.2 X10*3/uL (0.0-0.4); Eosinophils Percent Auto 1.8 % (0-4); Hematocrit 41.7 % (37.0-47.0); Imm Gran Abs Auto 0.05 X10*3/uL (0.00-0.03); Imm Gran Pct Auto 0.5 % (0.0-0.4); Lymphocytes Absolute Auto 3.7 X10*3/uL (1.2-4.9); Mean Corpuscular HGB Conc 31.2 g/dl (31.0-35.0); Mean Corpuscular Hemoglobin 27.2 pg (27.0-33.0); Mean Corpuscular Volume 87.2 fL (80.0-98.0); Mean Platelet Volume 10.7 fL (9.4-12.3); Monocytes Absolute Auto 0.7 X10*3/uL (0.1-1.2); Monocytes Percent Auto 6.6 % (2-11); Neutrophils Absolute Auto 5.9 x10*3/uL (2.0-8.3); Neutrophils Percent Auto 55.5 % (45-73); Platelet Count 371 X10*3/uL (160-400); Red Blood Count 4.78 X10*6/uL (4.20-5.50); Red Cell Distribution Width 13.6 % (11.0-16.0); White Blood Count 10.6 X10*3/uL (4.8-10.8)
[2023-05-24 13:46] LABS: Estimated Average Glucose 120 mg/dL; Hemoglobin A1c % 5.8 %
[2023-05-24 14:12] LABS: Anion Gap 10 (12-20); Blood Urea Nitrogen 10 mg/dL (9-16); Calcium 9.1 mg/dL (8.4-10.2); Carbon Dioxide 27 mmol/L (22-29); Chloride 107 mmol/L (96-108); Cholesterol 190 mg/dL; Estimated Glomerular Filt Rate > 60; Glucose Random 94 mg/dL (60-115); HDL Cholesterol 37 mg/dL; LDL Cholesterol Calculated 121 mg/dl; Sodium 140 mmol/L (135-145); Triglycerides 161 mg/dL
[2023-05-24 14:42] LABS: Vitamin B12 799 pg/mL (200-900)
[2023-05-25 08:31] LABS: HBS Num1 0.22 mIU/mL (0-7.99); HBc Num1 0.07 S/CO (0.00-0.79); HBsAGNum1 0.36 S/CO (0.00-0.99); Hepatitis A Antibody IgM 0.23 Index (0-0.79); Hepatitis B Core Antibody Nonreactive (Nonreactive); Hepatitis B Surface Antigen Negative (Negative); ~HepC Num1 0.07 S/CO (0.00-0.79); ~Hepatitis A Antibody IgM Nonreactive (Nonreactive); ~Hepatitis B Surface Antibody NONREACTIVE (Nonreactive); ~Hepatitis C Antibody Nonreactive (Nonreactive)
[2023-05-26 18:14] LABS: Homocysteine 9.7 umol/L (<10.4)
[2023-05-31 15:39] LABS: Methylmalonic Acid 101 nmol/L (87-318)
== END 2023-05-24 12:09 | disposition home or self-care (01) ==
LOC: HO.HHCL 12:08
PROVIDERS: Visit Provider Internal Medicine
DX: I10 Essential (primary) hypertension (principal)
CPT/HCPCS: 36415; 80048; 80061; 82607; 83036; 83090; 83921; 85025; 86704; 86706; 86709; 86803; 87340

== ENCOUNTER 2023-06-15 10:57 | Outpatient (REF) | payer MEDICAID, SELFPAY ==
[2023-06-16 07:54] LABS: Rubeola IgG (Measles) <13.50 AU/mL
[2023-06-16 09:18] LABS: Rubella IgG Antibody 1.76 Index
[2023-06-17 16:34] LABS: TS Negative Control Passed; TS Panel A 0; TS Panel B 0; TS Positive Control Passed; TSpotTB Negative (Negative)
== END 2023-06-15 10:58 | disposition home or self-care (01) ==
LOC: HO.HHCL 10:57
PROVIDERS: Visit Provider Internal Medicine
DX: Z00.00 Encounter for general adult medical examination without abnormal findings (principal); Z11.1 Encounter for screening for respiratory tuberculosis
CPT/HCPCS: 36415; 86481; 86735; 86762; 86765

== ENCOUNTER 2023-10-12 10:35 | Outpatient (REF) | payer MEDICAID, SELFPAY ==
--- NOTE | ~2023-10-12 | XR_ITS ---
EXAMINATION: XR LUMBOSACRAL SPINE CLINICAL INFORMATION: Chronic back pain COMPARISON: None available. TECHNIQUE: Three views of the lumbosacral spine. FINDINGS: The vertebral bodies and posterior elements are normal. The disc spaces are preserved and the vertebral alignment is normal. The paraspinal soft tissues are normal. Incidental note made of surgical clips in the right upper quadrant XR/XR lumbar spine 2-3V IMPRESSION: Unremarkable examination.
--- NOTE | ~2023-10-12 | XR_ITS ---
EXAMINATION: XR KNEE, RIGHT CLINICAL INFORMATION: Chronic pain of right knee COMPARISON: None available. TECHNIQUE: Four views of the right knee. FINDINGS: No fracture or joint effusion. Alignment is anatomic. Joint spaces are maintained. No abnormal soft tissue calcification. XR/XR knee RT 4V IMPRESSION: Normal right knee.
== END 2023-10-12 10:36 | disposition home or self-care (01) ==
LOC: HO.HHCX 10:35
PROVIDERS: Visit Provider Internal Medicine
DX: M54.50 Low back pain, unspecified (principal); G89.29 Other chronic pain; M25.561 Pain in right knee
CPT/HCPCS: 72100; 73564

== ENCOUNTER 2023-11-09 08:49 | Outpatient (AMB) | payer MEDICAID, SELFPAY ==
--- NOTE | 2023-11-09 08:57 | MHC.OFFVIS ---
Intake Intake Visit Reasons: Medication Follow up Quill Layer Required: Yes Quill Layer Language: Email Marketing Manager Name: Pia GOLDSTEIN Information Interpreted: non-clinical & clinical Accompanied by: Self / Same As Patient Allergies nitrofurantoin Allergy (Unknown, Verified 11/09/23 08:57) Unknown Is last menstrual period known: Yes HPI HPI Comments History of Present Illness Details Presenting for follow-up regarding Lysteda. The patient has been taking Lysteda 2 tablets p.o. t.i.d day 1-5 and her menstrual cycles are ultrasound technol and is requesting refill [facility] Medical History Lumbar radiculopathy, chronic Chronic pain syndrome Panic attack History of depression History of anxiety Surgical History Hx of cholecystectomy Hx of tubal ligation Hx of section Family History Paternal Grandmother History of breast cancer Female Reproductive History Menstrual Age of Menarche: 8 Review of Systems Const All systems reviewed & are unremarkable except as noted in HPI and below Reports as per HPI and Reports no additional complaints GI Reports no additional complaints Reports no additional complaints Assessment & Plan Assessment & Plan (1) Abnormal uterine bleeding (AUB): Code(s): N93.9 - Abnormal uterine and vaginal bleeding, unspecified Plan: Lysteda 1300 mg p.o. t.i.d. day 1-5 refill sent to the patient's pharmacy. Instructions given the patient to call in case of recurrence of her abnormal uterine bleeding. All questions answered, the patient verbalized understanding Medications: Refilled tranexamic acid Start 1st day of menses and take it up to 3-5 days of menses. 1,300 mg (2 x 650 mg) PO TID 30 tabs 6RF 5 days Coding Level of Care Code Est Pt Level 3 (26784) Diagnoses Abnormal uterine bleeding (AUB) N93.9
== END 2023-11-09 09:15 | disposition home or self-care (01) ==
LOC: HO.HWS 08:49
PROVIDERS: PCP Internal Medicine; Visit Provider Obstetrics & Gynecology
DX: N93.9 Abnormal uterine and vaginal bleeding, unspecified (principal)
CPT/HCPCS: 99213

== ENCOUNTER → 2023-11-09 08:49 | Outpatient (BNVA) | payer MEDICAID, SELFPAY | PROVIDERS: PCP Internal Medicine; Visit Provider Obstetrics & Gynecology | DX: N93.9 Abnormal uterine and vaginal bleeding, unspecified (principal) | CPT/HCPCS: 99212 ==

== ENCOUNTER 2023-12-01 19:16 | Outpatient (REF) | payer MEDICAID, SELFPAY ==
[2023-12-01 19:24] LABS: Appearance Urine Turbid; Color Urine Yellow; Glucose Urine UA Negative (Negative); Leukocyte Esterase Urine Moderate (2+) (Negative); Nitrite Urine Negative (Negative); PH 6.5 (5.0-9.0); UMIC TRIGGER UACC YES; Urine Blood Trace (Negative); Urine Ketones Trace mg/dL (Negative); Urine Protein Trace mg/dL (Neg-Trace)
[2023-12-01 19:29] LABS: Bacteria Urine 4+ (None Seen); Hyaline Casts Urine 0-2 /LPF (0-2); Squamous Epithelial Cell Urine 0-2 /HPF (0-2); UACC Culture Trigger YES; WBC Urine >50 /HPF (0-5)
[2023-12-02 06:03] LABS: CT PCR NOT DETECTED (Not Detect.); NG PCR NOT DETECTED (Not Detect.)
== END 2023-12-01 19:17 | disposition home or self-care (01) ==
LOC: HO.HHCLNP 19:16
PROVIDERS: Visit Provider Student in an Organized Health Care Education/Training Program
DX: R30.0 Dysuria (principal)
CPT/HCPCS: 0353U; 81001; 87086; 87088; 87186

== ENCOUNTER 2024-01-29 13:59 | Outpatient (AMB) | payer MEDICAID, SELFPAY ==
--- NOTE | 2024-01-29 14:20 | MHC.OFFVIS ---
Intake Vital Signs 01/29/24 14:24 Height 5 ft 5 in Weight 170 lb BMI 28.3 BP 118/72 Intake Visit Reasons: UTILITY AIDE annual exam Director Safety Council Required: Yes Director Safety Council Language: Orthopedic Coder Name: Pia GOLDSTEIN Information Interpreted: non-clinical & clinical Production Assembler: Production Assembler Present (Pia GOLDSTEIN) Accompanied by: Self / Same As Patient Allergies nitrofurantoin Allergy (Unknown, Verified 01/29/24 14:25) Unknown HPI HPI Comments History of Present Illness Details Presenting for annual exam. The patient has recently had a salpingectomy due to her left hydrosalpinx because of extensive adhesions had to had a laparotomy and was started on continuous control pills afterwards, the patient has an appointment scheduled [facility] for follow-up. Last Pap/HPV was negative in 04/20 Last Mammogram was BI-RADS 2 in 04/20 No previous screening Colonoscopy PFSH Medical History Lumbar radiculopathy, chronic Chronic pain syndrome Panic attack History of depression History of anxiety Surgical History Hx of cholecystectomy Hx of tubal ligation Hx of section Family History Paternal Grandmother History of breast cancer Female Reproductive History Menstrual Age of Menarche: 8 control method: pills and permanent sterilization Total pregnancies: 6 Full term: 6 Number of Living Children: 6 Date of last pap smear: 04/28/22 Date of Mammogram: 04/28/22 Review of Systems Const All systems reviewed & are unremarkable except as noted in HPI and below Card Reports as per HPI Resp Reports as per HPI GI Reports as per HPI and Reports no additional complaints Reports as per HPI Physical Exam Vital Signs: Last Vital Signs BP 118/72 01/29/24 14:24 BMI result Body Mass Index 28.3 Const General: cooperative, healthy appearing and comfortable Chest Chest palpation & inspection: normal inspection of the chest and normal palpation of entire chest wall Breast/axilla inspection: normal inspection of the breasts and normal inspection of the axillae Breast/axilla palpation: normal palpation of the breasts, normal palpation of the axillae and no axillary lymphadenopathy Resp Effort & Inspection: normal respiratory effort Auscultation: clear to auscultation bilaterally Percussion: percussion normal Cardio Palpation: normal PMI Rate: regular rate Rhythm: regular rhythm Heart sounds: no murmurs and no rubs Peripheral pulses: Peripheral pulses 2+ throughout GI Inspection: Yes normal to inspection Palpation (GI): Soft to palpation, nontender, no guarding, not rigid and No hepatosplenomegaly present Percussion: Yes normal to percussion Auscultation: normal bowel sounds Rectal Exam - Female: deferred General: Yes bladder normal to palpation External Female Exam: No lesion Speculum Exam - Vagina: normal appearance of the vagina, normal palpation, normal vaginal discharge and not erythematous Speculum Exam - Cervix: normal appearance of the cervix and normal palpation Bimanual exam- vagina & uterus: normal bimanual exam, normal palpation, uterine size normal, bladder normal to palpation, consistency normal and normal palpation Bimanual Exam- Adnexa, other: normal adnexae, no masses and no tenderness Assessment & Plan Assessment & Plan (1) Well woman exam: Code(s): Z01.419 - Encounter for gynecological examination (general) (routine) without abnormal findings Plan: Cotesting not indicated this year. Mammogram ordered. Counseled the patient about the recommended dietary allowance of 1000 mg of Calcium & 600 IU of vitamin D. Will refer to GI for screening colonoscopy Recommended the patient to follow up with [facility] for follow-up for control pills. The patient was instructed to perform monthly self-breast exams and to schedule an annual exam in a year; All questions answered and the patient verbalized understanding. Instructed the patient to schedule annual exam in a year Orders: Orders MM tomosynthesis screening BI Today Z12.31 - Encounter for screening mammogram for malignant neoplasm of breast Referrals Gastroenterology Referral Z12.11 - Encounter for screening for malignant neoplasm of colon Coding Level of Care Code Est Pt Prev Care 40-64y(68485) Diagnoses Well woman exam Z01.419
[2024-01-29 14:24] VITALS: BP 118/72; BMI 28.3
== END 2024-01-29 15:14 | disposition home or self-care (01) ==
LOC: HO.HWS 13:59
PROVIDERS: PCP Internal Medicine; Visit Provider Obstetrics & Gynecology
DX: Z01.419 Encounter for gynecological examination (general) (routine) without abnormal findings (principal)
CPT/HCPCS: 99396

== ENCOUNTER → 2024-01-29 13:59 | Outpatient (BNVA) | payer MEDICAID, SELFPAY | PROVIDERS: PCP Internal Medicine; Visit Provider Obstetrics & Gynecology | DX: Z01.419 Encounter for gynecological examination (general) (routine) without abnormal findings (principal) | CPT/HCPCS: 99396 ==

== ENCOUNTER 2024-02-09 19:33 | Outpatient (REF) | payer MEDICAID, SELFPAY ==
[2024-02-10 02:44] LABS: CT PCR NOT DETECTED (Not Detect.); NG PCR NOT DETECTED (Not Detect.)
[2024-02-10 13:23] LABS: BV Int Neg Control Negative (Negative); BV Int Pos Control Positive (Positive)
== END 2024-02-09 19:34 | disposition home or self-care (01) ==
LOC: HO.HHCLNP 19:33
PROVIDERS: Visit Provider Emergency Medicine
DX: N92.6 Irregular menstruation, unspecified (principal)
CPT/HCPCS: 0353U; 87480; 87510; 87660

== ENCOUNTER 2024-02-15 13:15 | Outpatient (REF) | payer MEDICAID, SELFPAY ==
--- NOTE | ~2024-02-15 | US_ITS ---
EXAMINATION: US PELVIS CLINICAL INFORMATION: Irregular menses, unknown last menstrual period, bleeding for 1 month. COMPARISON: Pelvic ultrasound 09/28/2022. TECHNIQUE: Ultrasound of the pelvis is performed using both transabdominal and transvaginal transducers along with Doppler. Transvaginal imaging is performed due to inadequate visualization transabdominally. Limited visualization due to bowel gas. FINDINGS: The uterus measures 13.0 x 5.3 x 7.4 cm. Uterus appears retropositioned, although visualization somewhat limited due to bowel gas and uterine positioning. No significant free fluid in the pelvis. Uterus appears heterogeneous, although no discrete fibroids are appreciated. Endometrial double wall thickness of 4 mm with trace amount of fluid within the endometrial cavity. Right ovary seen only on transabdominal ultrasound images and measures 1.9 x 1.3 x 1.7 cm, volume 2.2 mL. Right ovary is grossly unremarkable on limited transabdominal ultrasound images. Left ovary measures 2.4 x 1.4 x 2.0 cm, volume 3.5 mL. Left ovary is grossly unremarkable on limited transabdominal and transvaginal ultrasound images. Previously identified 3.8 cm left ovarian cyst and 4.1 cm left adnexal tubular structure are not clearly visualized today, although visualization is limited due to bowel gas. US/US pelvic and transvaginal IMPRESSION: 1. Uterus appears heterogeneous, although no discrete fibroids are appreciated. 2. Endometrial double wall thickness of 4 mm with trace amount of fluid within the endometrial cavity. 3. Previously identified 3.8 cm left ovarian cyst and 4.1 cm left adnexal tubular structure are not clearly visualized today, although visualization is limited due to bowel gas.
== END 2024-02-15 13:16 | disposition home or self-care (01) ==
LOC: HO.US 13:15
PROVIDERS: PCP Internal Medicine; Visit Provider Emergency Medicine
DX: Z12.31 Encounter for screening mammogram for malignant neoplasm of breast (principal); N92.6 Irregular menstruation, unspecified
CPT/HCPCS: 76830; 76856; 77063; 77067

== ENCOUNTER → 2024-02-15 14:00 | Outpatient (BNV) | payer MEDICAID, SELFPAY | PROVIDERS: PCP Internal Medicine; Visit Provider Radiology Diagnostic Radiology | DX: Z12.31 Encounter for screening mammogram for malignant neoplasm of breast (principal) | CPT/HCPCS: 77063; 77067 ==

== ENCOUNTER 2024-05-27 10:37 | Outpatient (REF) | payer MEDICAID, SELFPAY ==
[2024-05-27 14:28] LABS: Alanine Aminotransferase 28 U/L (0-31); Albumin Level 3.9 g/dL (3.5-5.0); Alkaline Phosphatase 86 U/L (39-117); Anion Gap 12 (12-20); Aspartate Amino Transferase 22 U/L (5-31); Bilirubin Direct < 0.2 mg/dL (0.0-0.5); Bilirubin Total 0.2 mg/dL (0.0-1.0); Blood Urea Nitrogen 8 mg/dL (9-16); Carbon Dioxide 21 mmol/L (22-29); Chloride 111 mmol/L (96-108); Cholesterol 191 mg/dL (<200); Estimated Glomerular Filt Rate > 60; Glucose Random 111 mg/dL (60-115); HDL Cholesterol 27 mg/dL (>40); LDL Cholesterol Calculated 147 mg/dL (<100); Potassium 3.7 mmol/L (3.3-5.1); Sodium 140 mmol/L (135-145); Total Protein 6.9 g/dL (6.5-8.0); Triglycerides 89 mg/dL (<150)
[2024-05-27 14:36] LABS: Estimated Average Glucose 131 mg/dL; Hemoglobin A1c % 6.2 % (<6.0)
== END 2024-05-27 10:38 | disposition home or self-care (01) ==
LOC: HO.HHCL 10:37
PROVIDERS: Visit Provider Internal Medicine
DX: I10 Essential (primary) hypertension (principal); R73.03 Prediabetes
CPT/HCPCS: 36415; 80048; 80061; 80076; 83036

== ENCOUNTER 2024-12-17 13:08 | Outpatient (AMB) | payer MEDICAID, SELFPAY ==
--- NOTE | 2024-12-17 13:25 | A.OFFVIS_ITS ---
Vital Signs 12/17/24 13:28 Height 5 ft 5 in Weight 171 lb BMI 28.5 Intake Visit Reasons: AUB Chief Steward/Stewardess Required: Yes Chief Steward/Stewardess Language: Bereavement Coordinator Services: Chief Steward/Stewardess Present (in person) Chief Steward/Stewardess Name: Pia GOLDSTEIN Information Interpreted: non-clinical & clinical Immigration Paralegal: Immigration Paralegal Present (Pia GOLDSTEIN) Accompanied by: Self / Same As Patient Allergies nitrofurantoin Allergy (Unknown, Verified 12/17/24 13:30) Unknown HPI Comments Details: Presenting for a 2nd opinion . The patient was seen at [facility] for consult regarding long-term AUB, the workup according to the patient included CBC, co testing, EMB all came back within normal with no evidence of endometrial hyperplasia and/or malignancy, no reports available. Ultrasound was done and according to patient showed myomas. The patient tried Lysteda, norethindrone post failed and now is on Provera daily and scheduled for minimally invasive hysterectomy on 12/23/2024 [facility] Medical History Lumbar radiculopathy, chronic Chronic pain syndrome Panic attack History of depression History of anxiety Surgical History Hx of cholecystectomy Hx of tubal ligation Hx of section Family History Paternal Grandmother History of breast cancer Female Reproductive History Menstrual Age of Menarche: 8 Review of Systems Const All systems reviewed & are unremarkable except as noted in HPI and below Reports as per HPI and Reports no additional complaints GI Reports no additional complaints Reports no additional complaints Physical Exam Vital Signs: BMI result Body Mass Index 28.5 Assessment & Plan Assessment & Plan (1) Abnormal uterine bleeding (AUB): Code(s): N93.9 - Abnormal uterine and vaginal bleeding, unspecified Category: Medical Plan: Discussed with the patient the results of the work up done and options of reno atment including Lysteda, BCP's, Mirena IUD, endometrial ablation and hysterectomy. All pros, cons, risks and benefits of each option was discussed with the patient decided to proceed with her reschedule hysterectomy at [facility]. . All questions answered the patient verbalized understanding. Coding Level of Care Code Est Pt Level 3 (04023) Diagnoses Abnormal uterine bleeding (AUB) N93.9
[2024-12-17 13:28] VITALS: BMI 28.5
--- OUTSIDE RECORDS SUMMARY | 2024-12-17 14:06 | XMS_ITS | Encounter Summary ---
Author Organization [email or web address] [facility] Address [address] 7t [place] [address] Care Team Providers Care Wheel Blocker Name Role Phone Rima Sequeira MD Primary Care Provide r Reason for Visit * Reason Comments Med Refill Encounter Details Date Type Department Care Team ([facility] st Contact Info) Description 09/05/2023 Refill [facility] MEDICINE [address] [place], [place] [phone] Lisa Brewer MD [address] [place], [place] [phone] Social History Tobacco Use Types Packs/Day Years Used Date Smoking Tobacco: Never Smokeless Tobacco: Never Alcohol Use Standard Drinks/Week Comments Never 0 (1 standard drink = 0.6 oz pur e alcohol) Depression Answer Date Recorded Patient Health Questionnaire-9 Score 13 06/15/2023 Housing Stability Answer Date Recorded What is your housing situation today? I have mykeidris hanna 08/28/[address] you li ve. Do you have problems with any of the following? None of the above 08/28/2023 Food Insecurity Answer Date Recorded Within the past 12 months, y ou worried that your food would run out before you got money to buy more: Never True 08/28/2023 Within the past 12 months,th e food you bought just didn't last and you didn't have enough money to get more: Never True Transportation Answer Date Recorded In the past 12 months, has l ack of transportation kept you from medical appts, meetings, work or from getting things needed for daily living? Yes, it has kept me from medical appointments or getting medications. 08/08/2023 Utilities Answer Date Recorded In the past 12 months, has t he [employer], [employer], oil or water company threatened to shut off services in your home? No 08/28/2023 Depression Answer Date Recorded Patient Health Questionnaire-2 Score 4 06/15/2023 Comments Unknown Sex and Gender Information Value Date Recorded Sex Assigned at Female 08/29/2022 10:22 AM EDT Legal Sex Female 10:22 AM EDT Gender Identity Female 08/29/2022 10:22 AM EDT Sexual Orientation Choose not to disclose 2021 10:22 AM EDT documented as of this encounter Plan of Treatment Upcoming Encounters Date Type Department Care Team (Late st Contact Info) Description 02/04/2025 9:45 AM EDT Office Visit [facility] [address] [place] [address] 04/03/2025 1:00 PM EDT Office Visit [facility] OPTOMETRY [address] [place] [address] Richard, Oanh, OD 230 [place] [address] documented as of this encounter Visit Diagnoses Not on filedocumented in this encounter Additional Health Concerns Assessment Noted Time PHQ-9 Depression Total Score: 13 023 9:18 AM EDT documented as of this encounter Care Teams Wheel Blocker Relationship Specialty Start Date End Date Rima Sequeira MD [address] [place] [address] PCP - General Family Medicine 11/06/18 documented as of this encounter
--- OUTSIDE RECORDS SUMMARY | 2024-12-17 14:06 | XMS_ITS | Encounter Summary ---
Author Organization [facility] [facility] Address [address] 7t [place] [address] Care Team Providers Care Product Marketer Name Role Phone Rima Sequeira MD Primary Care Provide r Reason for Visit * Reason Comments Med Refill Encounter Details Date Type Department Care Team ([facility] st Contact Info) Description 08/22/2024 Refill [facility] MEDICINE [address] [place], [place] [phone] Rima Sequeira MD [address] [place] [address] Social History Tobacco Use Types Packs/Day Years Used Date Smoking Tobacco: Never Passive Smoke Exposure: Never Smokeless Tobacco: Never Alcohol Use Standard Drinks/Week Comments Never 0 (1 standard drink = 0.6 oz pur e alcohol) Depression Answer Date Recorded Patient Health Questionnaire-9 Score 18 05/01/2024 Patient Health Questionnaire-9 Score 18 05/01/2024 Last PHQ-9: Questionnaire Data Not on file 0 05/01/2024 Housing Stability Answer Date Recorded What is your housing situation today? I have myke hanna 08/28/[address] you [...] from getting things needed for daily living? No 12/06/2023 Utilities Answer Date Recorded In the past 12 months, has t he electric, gas, oil or water company threatened to shut off services in your home? No 08/28/2023 Depression Answer Date Recorded Patient Health Questionnaire-2 Score 6 05/01/2024 Comments Unknown Sex and Gender Information Value [...] Description 02/04/2025 9:45 AM EDT Office Visit [facility] MEDICINE [address] [place] [address] 04/03/2025 1:00 PM EDT Office Visit [facility] OPTOMETRY [address] [place] [address] Richard, Oanh, OD [address] [place] [address] documented as of this encounter Visit Diagnoses Not on filedocumented in this encounter Additional Health Concerns Assessment Noted Time PHQ-9 Depression Total Score: 18 024 9:17 AM EDT documented as of this encounter Care Teams Product Marketer Relationship Specialty Start Date End Date Rima Sequeira MD [address] [place] [address] PCP - General Family Medicine 11/06/18 documented as of this encounter
--- OUTSIDE RECORDS SUMMARY | 2024-12-17 14:06 | XMS_ITS | Encounter Summary ---
Author Organization [employer] Address [address] 7t [place] [address] Care Team Providers Care Check Embosser Name Role Phone Rima Sequeira MD Primary Care Provide r Encounter Details Date Type Department Care Team (Late Contact Info) Description 07/04/2023 Orders Only [facility] MED & PEDS [address] [place] [address] Laxmi Granger LPN Social History Tobacco Use Types Packs/Day Years Used Date Smoking Tobacco: Never Smokeless Tobacco: Never Alcohol Use Standard Drinks/Week Comments Never 0 (1 standard drink = 0.6 oz pur e alcohol) Depression Answer Date Recorded Patient Health Questionnaire-9 Score 13 06/15/2023 Depression Answer Date Recorded Patient Health Questionnaire-2 [...] Encounters Date Type Department Care Team (Late Contact Info) Description 02/04/2025 9:45 AM EDT Office Visit [facility] MEDICINE [address] [place] [address] 04/03/2025 1:00 PM EDT Office Visit [facility] OPTOMETRY [address] [place] [address] Oanh Ramos, OD [address] [place] [address] documented as of this encounter Visit Diagnoses Not on filedocumented in this encounter Additional Health Concerns Assessment Noted Time PHQ-9 Depression Total Score: 13 023 9:18 AM EDT documented as of this encounter Care Teams Check Embosser Relationship Specialty Start Date End Date Rima Sequeira MD [address] [place] [address] PCP - General Family Medicine 11/06/18 documented as of this encounter
--- OUTSIDE RECORDS SUMMARY | 2024-12-17 14:06 | XMS_ITS | Encounter Summary ---
Author Organization [employer] Address [address] [facility] 7t [place] [address] Care Team Providers Care Channel Development Director Name Role Phone Rima Sequeira MD Primary Care Provide r Reason for Visit * Reason Comments Med Refill Encounter Details Date Type Department Care Team ([facility] st Contact Info) Description 12/29/2023 Refill [facility] [address] [place], [place] [phone] Rima Hunter MD [address] [place] [address] Dysuria Social History Tobacco Use Types Packs/Day Years Used Date Smoking Tobacco: Never Smokeless Tobacco: Never Alcohol Use Standard Drinks/Week Comments Never 0 (1 standard drink = 0.6 oz pur e alcohol) Depression Answer Date Recorded Patient Health Questionnaire-9 Score 11 01/02/2024 Patient Health Questionnaire-9 Score 11 01/02/2024 Last PHQ-9: Questionnaire Data Not on file 0 01/02/2024 Housing Stability Answer Date Recorded What is [...] Answer Date Recorded Patient Health Questionnaire-2 Score 2 01/02/2024 Comments Unknown Sex and Gender Information Value [...] Description 02/04/2025 9:45 AM EDT Office Visit [facility] MEDICINE [address] [place] [address] 04/03/2025 1:00 PM EDT Office Visit [facility] OPTOMETRY [address] [place] [address] Richard, Oanh, OD [address] [place] [address] documented as of this encounter Visit Diagnoses Diagnosis Dysuria documented in this encounter Additional Health Concerns Assessment Noted Time PHQ-9 Depression Total Score: 13 023 9:18 AM EDT documented as of this encounter Care Teams Channel Development Director Relationship Specialty Start Date End Date Rima Sequeira MD [address] [place] [address] PCP - General Family Medicine 11/06/18 documented as of this encounter
--- OUTSIDE RECORDS SUMMARY | 2024-12-17 14:06 | XMS_ITS | Encounter Summary ---
Author Organization [employer] [facility] Address [address] 7t [place] [address] Care Team Providers Care Hr Manager Name Role Phone Rima Sequeira MD Primary Care Provide r Reason for Visit * Reason Comments Med Refill Encounter Details Date Type Department Care Team ([facility] st Contact Info) Description 05/27/2024 Refill [facility] MEDICINE [address] [place], [place] [phone] Rima Sequeira MD [address] [place] [address] Fibromyalgia Social History Tobacco Use Types Packs/Day Years [...] Description 02/04/2025 9:45 AM EDT Office Visit [facility] MEDICINE [address] [place] [address] 04/03/2025 1:00 PM EDT Office Visit [facility] OPTOMETRY [address] [place] [address] Oanh Ramos, OD [address] [place] [address] documented as of this encounter Visit Diagnoses Diagnosis Fibromyalgia Unspecified myalgia and myositis documented in this encounter Additional Health Concerns Assessment Noted Time PHQ-9 Depression Total Score: 18 024 9:17 AM EDT documented as of this encounter Care Teams Hr Manager Relationship Specialty Start Date End Date Rima Sequeira MD [address] [place] [address] PCP - General Family Medicine 11/06/18 documented as of this encounter
--- OUTSIDE RECORDS SUMMARY | 2024-12-17 14:06 | XMS_ITS | Encounter Summary ---
Author Organization [employer] [facility] Address [address] 7t [place] [address] Care Team Providers Care Allied Health Professional Name Role Phone Rima Sequeira MD Primary Care Provide r Reason for Visit * Reason Comments Med Refill Encounter Details Date Type Department Care Team ([facility] st Contact Info) Description 05/22/[address] [facility] MED[facility]INE [address] [place], [place] [phone] Rima Sequeira MD [address] [place] [address] Fibromyalgia Social History Tobacco Use Types Packs/Day [...] AM EDT documented as of this encounter Miscellaneous Notes * Telephone Encounter - Che Hall RN - 05/22/2024 4:09 PM EDT Per Joshua, Tramadol RX last filled 05/01/24. Refill not due until 05/29/24. Will send to PCP on 05/27/24. documented in this encounter Plan of Treatment Upcoming Encounters Date Type Department Care Team (Late st Contact Info) Description 02/04/2025 9:45 AM EDT Office Visit [facility] MEDICINE [address] [place] [address] 04/03/2025 1:00 PM EDT Office Visit [facility] OPTOMETRY [address] [place] [address] Richard, Oanh, OD [address] [place] [address] documented as of this encounter Visit Diagnoses Diagnosis Fibromyalgia Unspecified myalgia and myositis documented in this encounter Additional Health Concerns Assessment Noted Time PHQ-9 Depression Total Score: 18 024 9:17 AM EDT documented as of this encounter Care Teams Allied Health Professional Relationship Specialty Start Date End Date Rima Sequeira MD [address] [place] [address] PCP - General Family Medicine 11/06/18 documented as of this encounter
--- OUTSIDE RECORDS SUMMARY | 2024-12-17 14:06 | XMS_ITS | Encounter Summary ---
Author Organization [employer] [facility] Address [address] [place] [address] [address] [place] [address] Care Team Providers Care Denier Control Operator Name Role Phone Rima Sequeira MD Primary Care Provide r Encounter Details Date Type Department Care Team (Late Contact Info) Description 07/27/2023 Orders Only [facility] MEDICINE [address] [place] [address] [phone] Provider, MD Gabriela Social History Tobacco Use Types Packs/Day Years [...] Description 02/04/2025 9:45 AM EDT Office Visit [facility] MEDICINE [address] [place], [place] [phone] 04/03/2025 1:00 PM EDT Office Visit [facility] OPTOMETRY [address] [place], [place] [phone] Oanh Ramos, OD [address] [place] [address] documented as of this encounter Procedures Procedure Name Priority Date/Time Associated Diagnosis Comments HM PAP/HPV Routine 04/27/2022 documented in this encounter Results * Hm Pap Smear (04/27/2022) us Historical Provider HEALTH MAINTENANCE Final Result documented in this encounter Visit Diagnoses Not on filedocumented in this encounter Additional Health Concerns Assessment Noted Time PHQ-9 Depression Total Score: 13 06/15/ 023 9:18 AM EDT documented as of this encounter Care Teams Denier Control Operator Relationship Specialty Start Date End Date Rima Sequeira MD [address] [place] [address] PCP - General Family Medicine 11/06/18 documented as of this encounter
--- OUTSIDE RECORDS SUMMARY | 2024-12-17 14:06 | XMS_ITS | Encounter Summary ---
Author Organization [facility] Address [address] [place] [address] 7 [place] [address] Care Team Providers Care Critical Care Physician Assistant Name Role Phone Rima Sequeira MD Primary Care Provide r Encounter Details Date Type Department Care Team (Late st Contact Info) Description 07/05/2023 [facility] Information Management [address] [place], [place] [phone] Rima Sequeira MD [address] [place], [place] [phone] Social History Tobacco Use Types Packs/Day Years [...] Description 02/04/2025 9:45 AM EDT Office Visit [facility] MEDICINE [address] [place], [place] [phone] 04/03/2025 1:00 PM EDT Office Visit [facility] OPTOMETRY [address] [place], [place] [address] Oanh Ramos, OD [address] [place] [address] documented as of this encounter Visit Diagnoses Not on filedocumented in this encounter Additional Health Concerns Assessment Noted Time PHQ-9 Depression Total Score: 13 023 9:18 AM EDT documented as of this encounter Care Teams Critical Care Physician Assistant Relationship Specialty Start Date End Date Rima Sequeira MD [address] [place] [address] PCP - General Family Medicine 11/06/18 documented as of this encounter
--- OUTSIDE RECORDS SUMMARY | 2024-12-17 14:06 | XMS_ITS | Encounter Summary ---
Author Organization [employer] [facility] Address [address] [facility] 7t [place] [address] Care Team Providers Care Fundraising Manager Name Role Phone Rima Sequeira MD Primary Care Provide r Reason for Visit * Reason Comments Med Refill Encounter Details Date Type Department Care Team ([facility] st Contact Info) Description 01/26/2024 Refill [facility] MEDICINE [address] [place], [place] [phone] Rima Sequeira MD [address] [place] [address] Fibromyalgia Social History Tobacco Use Types Packs/Day Years Used Date Smoking Tobacco: Never Passive Smoke Exposure: Never Smokeless Tobacco: Never Alcohol Use Standard Drinks/Week Comments Never 0 (1 standard drink = 0.6 oz pur e alcohol) Depression Answer Date Recorded Patient Health Questionnaire-9 Score 17 01/30/2024 Patient Health Questionnaire-9 Score 17 01/30/2024 Last PHQ-9: Questionnaire Data Not on file 0 01/30/2024 Housing Stability Answer Date Recorded What is [...] Date Recorded Patient Health Questionnaire-2 Score 6 01/30/2024 Comments Unknown Sex and Gender Information Value [...] Description 02/04/2025 9:45 AM EDT Office Visit [facility] MEDICINE [address] [place] [address] 04/03/2025 1:00 PM EDT Office Visit [facility] OPTOMETRY [address] [place] [address] Oanh Ramos, OD [address] [place] [address] documented as of this encounter Visit Diagnoses Diagnosis Fibromyalgia Unspecified myalgia and myositis documented in this encounter Additional Health Concerns Assessment Noted Time PHQ-9 Depression Total Score: 11 024 2:48 PM EST documented as of this encounter Care Teams Fundraising Manager Relationship Specialty Start Date End Date Rima Sequeira MD [address] [place] [address] PCP - General Family Medicine 11/06/18 documented as of this encounter
--- OUTSIDE RECORDS SUMMARY | 2024-12-17 14:06 | XMS_ITS | Encounter Summary ---
Author Organization [employer] [facility] Address [address] 7t [place] [address] Care Team Providers Care Child Support Agent Name Role Phone Rima Sequeira MD Primary Care Provide r Reason for Visit * Reason Onset Date Comments Med Refill 10/04/2023 Encounter Details Date Type Department Care Team ([facility] st Contact Info) Description 10/04/2023 Telephone [facility] MEDICINE [address] [place], [place] [phone] Rima Sequeira MD [address] [place] [address] Med Refill Social History Tobacco Use Types Packs/Day Years [...] encounter Miscellaneous Notes * Telephone Encounter - Mary Zhao LPN - 10/04/2023 1:56 PM EST Lisinopril was sent to [facility] #[id number] on 07/07/23 #90 with 1 refill. * Telephone Encounter - Isaac Kelley - 10/04/2023 1:40 PM EST Tc from patient requesting a medication refill for lisinopril 20 MG tablet and a medication for prediabetes however lead technical writer does not see anything on file documented in this encounter Plan of Treatment Upcoming Encounters Date Type Department Care Team (Late st Contact Info) Description 02/04/2025 9:45 AM EDT Office Visit [facility] MEDICINE [address] [place] [address] 04/03/2025 1:00 PM EDT Office Visit [facility] OPTOMETRY [address] [place] [address] Oanh Ramos, OD [address] [place] [address] documented as of this encounter Visit Diagnoses Not on filedocumented in this encounter Additional Health Concerns Assessment Noted Time PHQ-9 Depression Total Score: 13 023 9:18 AM EDT documented as of this encounter Care Teams Child Support Agent Relationship Specialty Start Date End Date Rima Sequeira MD [address] [place] [address] PCP - General Family Medicine 11/06/18 documented as of this encounter
--- OUTSIDE RECORDS SUMMARY | 2024-12-17 14:06 | XMS_ITS | Encounter Summary ---
Author Organization [employer] [facility] Address [address] [facility] 7t [place] [address] Care Team Providers Care Straightedge Machine Operator Helper Name Role Phone Rima Sequeira MD Primary Care Provide r Reason for Visit * Reason Comments Med Refill Encounter Details Date Type Department Care Team ([facility] st Contact Info) Description 08/05/[address] [facility] MEDICINE [address] [place], [place] [phone] Lisa Brewer MD [address] [place], [place] [phone] Fibromyalgia Social History Tobacco Use Types Packs/Day [...] Description 02/04/2025 9:45 AM EDT Office Visit [facility] MEDICINE [address] [place] [address] 04/03/2025 1:00 PM EDT Office Visit [facility] OPTOMETRY [address] [place] [address] Oanh Ramos, OD 230 [place] [address] documented as of this encounter Visit Diagnoses Diagnosis Fibromyalgia Unspecified myalgia and myositis documented in this encounter Additional Health Concerns Assessment Noted Time PHQ-9 Depression Total Score: 18 024 9:17 AM EDT documented as of this encounter Care Teams Straightedge Machine Operator Helper Relationship Specialty Start Date End Date Rima Sequeira MD [address] [place] [address] PCP - General Family Medicine 11/06/18 documented as of this encounter
--- OUTSIDE RECORDS SUMMARY | 2024-12-17 14:07 | XMS_ITS | Encounter Summary ---
Author Organization [employer] [facility] Address [address] 7t [place] [address] Care Team Providers Care Rehab Specialist Name Role Phone Rima Sequeira MD Primary Care Provide r Reason for Visit * Reason Comments Med Refill Encounter Details Date Type Department Care Team ([facility] st Contact Info) Description 09/05/2024 Refill [facility] MEDICINE [address] [place], [place] [phone] Rima Sequeira MD [address] [place] [address] Fibromyalgia Social History Tobacco Use Types Packs/Day [...] Description 02/04/2025 9:45 AM EDT Office Visit [facility] MEDICINE [address] [place] [address] 04/03/2025 1:00 PM EDT Office Visit [facility] OPTOMETRY [address] [place] [address] Oanh Ramos, OD [address] [place] [address] documented as of this encounter Visit Diagnoses Diagnosis Fibromyalgia Unspecified myalgia and myositis documented in this encounter Additional Health Concerns Assessment Noted Time PHQ-9 Depression Total Score: 18 024 9:17 AM EDT documented as of this encounter Care Teams Rehab Specialist Relationship Specialty Start Date End Date Rima Sequeira MD [address] [place] [address] PCP - General Family Medicine 11/06/18 documented as of this encounter
--- OUTSIDE RECORDS SUMMARY | 2024-12-17 14:07 | XMS_ITS | Encounter Summary ---
Author Organization [employer] [facility] Address [address] [facility] [address] [place] [address] Care Team Providers Care Welder Pipe Making Name Role Phone Rima Sequeira MD Primary Care Provide r Reason for Visit * Reason Comments Med Refill Encounter Details Date Type Department Care Team ([facility] st Contact Info) Description 12/01/2023 Refill [facility] [address], [place] [phone] Rima Sequeira MD [address] [place] [address] Fibromyalgia Social History Tobacco Use Types Packs/Day [...] Description 02/04/2025 9:45 AM EDT Office Visit [facility] [address] [place] [address] 04/03/2025 1:00 PM EDT Office Visit [facility] [address] [place] [address] Richard, Oanh, OD [address] [place] [address] documented as of this encounter Visit Diagnoses Diagnosis Fibromyalgia Unspecified myalgia and myositis documented in this encounter Additional Health Concerns Assessment Noted Time PHQ-9 Depression Total Score: 13 023 9:18 AM EDT documented as of this encounter Care Teams Welder Pipe Making Relationship Specialty Start Date End Date Rima Sequeira MD [address] [place] [address] PCP - General Family Medicine 11/06/18 documented as of this encounter
--- OUTSIDE RECORDS SUMMARY | 2024-12-17 14:07 | XMS_ITS | Clinical Summary ---
Author Organization [facility] Address [address] [place] [address] Care Team Providers Care Dosier Operator Name Role Phone Rima Sequeira MD Primary Care Provide r Allergies Active Allergy Reactions Criticality Noted Date Comments Acetaminophen Palpitations Low 01/30/2019 Nitrofurantoin 08/25/2017 Oxycodone Palpitations Low 01/30/2019 Medications * This document contains information received from the source organization and may not represent a complete record from that organization. cyclobenzaprine (Flexeril) 10 MG tabletIndicatio ns:Right hip pain,UTI symptoms One tab po at bedtime prn pain of muscles, do not drive with medicaion 15 tablet 06/15/20 23 Active omeprazole (PriLOSEC) [address] capsule Take 1 capsule (20 mg) by mouth before breakfast and before evening meal. Do not crush or chew. 180 capsule 06/16/20 23 Active Alcohol Swabs (Alcohol Prep) 70 % pads APPLY 1 PAD TO SKIN THREE TIMES DAILY 11/16/19 23 Active naloxone (Narcan) 4 mg/0.1 mL nasal spray CALL 911. SPRAY CONTENTS OF ONE SPRAYER(0.1M L) INTO ONE NOSTRIL. REPEAT IN 2-3 MINUTES IF SYMPTOMS OF OPIOID EMERGENCY PERSIST, ALTERNATE NOSTRILS 2 each 1 09/06/20 23 Active cyclobenzaprine (Flexeril) 10 MG tabletIndicatio ns:Muscle spasm TAKE 1 TABLET(10 MG) BY MOUTH AT BEDTIME FOR 10 DAYS 10 tablet 09/06/20 23 Active docusate sodium (Colace) 100 MG capsuleIndicati ons:Other constipation TAKE ONE CAPSULE BY MOUTH TWICE DAILY FOR 10 DAYS 20 capsule 09/06/20 23 Active gabapentin (Neurontin) 100 MG capsuleIndicati ons:Chronic midline low back pain without sciatica Take 3 capsules (300 mg) by mouth every 8 (eight) hours. 270 capsule 10/11/20 23 Active ALPRAZolam (Xanax) 1 MG tablet Take 1 mg by mouth if needed at bedtime. Active albuterol 108 (90 Base) MCG/ACT inhaler Inhale 2 puffs every 4 (four) hours if needed for wheezing or shortness of breath. 18 g 1 10/18/20 23 Active betamethasone valerate (Valisone) 0.1 % creamIndication s:Polymorphous light eruption Apply topically if needed in the morning and at bedtime (dryness). Apply on rash when it appears 45 g 2 04/19/20 24 Active ibuprofen 800 MG tabletIndicatio ns:Acute low back pain, unspecified back pain laterality, unspecified whether sciatica present Take 1 tablet (800 mg) by mouth every 8 (eight) hours if needed for mild pain or moderate pain. 90 tablet 3 06/21/20 24 Active hydrocortisone 2.5 % cream APPLY TOPICALLY TO THE AFFECTED AREA EVERY DAY 60 g 1 08/06/20 24 Active Nystop [id number] UNIT/GM powderIndicatio ns:Candidal intertrigo APPLY TOPICALLY TWICE DAILY TO AFFECTED AREAS 30 g 1 08/06/20 24 Active metFORMIN (Glucophage) 500 MG tabletIndicatio ns:Newly diagnosed diabetes (CMS/HCC) Take 1 tablet (500 mg) by mouth with breakfast and with evening meal. 60 tablet 11 08/21/20 24 Active lisinopril 20 MG tabletIndicatio ns:Essential hypertension TAKE 1 TABLET(20 MG) BY MOUTH IN THE MORNING 90 tablet 1 08/22/20 24 Active Alcohol Swabs (Alcohol Prep) 70 % pads Place 1 each on the skin 2 times daily. APPLY 1 PAD TO SKIN THREE TIMES DAILY 100 each 11 08/22/20 24 Active glucose blood (FREESTYLE LITE) test strip TEST BLOOD SUGAR 3 TIMES A DAY 100 each 11 08/22/20 24 025 Active TRUEplus Lancets 33G misc Use to check blood sugar three times a day 100 each 11 09/03/20 24 Active FreeStyle lancetsIndicati ons:Type 2 diabetes mellitus without complication, without long-term current use of insulin (CMS/HCC) 1 each by Other route 2 times daily. 100 each 12 09/06/20 24 025 Active ibuprofen 400 MG tablet TAKE 1 TABLET BY MOUTH EVERY 6 HOURS FOR UP TO 30 DOSES NEEDED FOR MODERATE PAIN OR FEVER 30 tablet 10/29/20 24 Active cyclobenzaprine (Flexeril) 10 MG tablet TAKE 1 TABLET(10 MG) BY MOUTH AT BEDTIME FOR 10 DAYS 10 tablet 10/29/20 24 Active Lancets miscIndications :Type 2 diabetes mellitus with hyperglycemia, without long-term current use of insulin ([facility]) 1 each Once per day. 100 each 2 11/05/19 25 Active diphenhydrAMINE (Banophen) 25 MG tablet TAKE 2 TABLETS BY MOUTH EVERY 4 TO 6 HOURS NEEDED 30 tablet 1 11/25/19 25 Active Acetaminophen Extra Strength 500 MG tabletIndicatio ns:Right hip pain TAKE 1 TABLET BY MOUTH EVERY 6 HOURS NEEDED FOR PAIN 180 tablet 11/29/19 25 Active traMADol (Ultram) 50 MG tabletIndicatio ns:Fibromyalgia Take 1 tablet (50 mg) by mouth every 6 (six) hours if needed for severe pain for up to 28 days. 112 tablet 12/17/19 25 025 Active diphenhydrAMINE (Banophen) 25 MG tablet TAKE 2 TABLETS BY MOUTH EVERY 4 TO 6 HOURS NEEDED 30 tablet 1 09/30/20 24 025 Discontinued Acetaminophen Extra Strength 500 MG tabletIndicatio ns:Right hip pain TAKE 1 TABLET BY MOUTH EVERY 6 HOURS NEEDED FOR PAIN 180 tablet 10/01/20 24 025 Discontinued traMADol (Ultram) 50 MG tabletIndicatio ns:Fibromyalgia TAKE 1 TABLET(50 MG) BY MOUTH EVERY 6 HOURS NEEDED FOR SEVERE PAIN 112 tablet 10/29/20 24 025 Discontinued traMADol (Ultram) 50 MG tabletIndicatio ns:Fibromyalgia TAKE 1 TABLET(50 MG) BY MOUTH EVERY 6 HOURS NEEDED FOR SEVERE PAIN 56 tablet 11/28/19 25 025 Discontinued(Re order (will not trigger notification to Pharmacy)) Active Problems Problem Noted Date Diagnosed Date Long-term current use of opiate analgesic 2024 Overview (12/10/2024): Medication: Tramadol 50mg Q6H PRN Indication: chronic pelvic pain Last RECREATION LEADER Agreement: 04/02/24 Type 2 diabetes mellitus wit h hyperglycemia, without long-term current use of insulin 11/05/2024 Assessment & Plan (11/05/2024 3:55 PM EST): Diabetes is: almost at goal - Lab Results Component Value Date HGBA1C 6.9 (A) 11/05/2024 HGBA1C 6.9 (A) 08/21/2024 HGBA1C 6.2 (H) 05/27/2024 - Lab Results Component Value Date CREATININE 0.76 05/27/2024 -Changes: none - Diabetic eye exam:pending - Diabetic foot exam:pending - Continue lifestyle modifications - Continue current medications - Follow up: 3 months Right flank pain, chronic 08/21/2024 Constipation 08/21/2024 Assessment & Plan (08/21/2024 4:40 PM EDT): Increase water and fiber on diet C/w colace and miralax Hair loss 08/21/2024 Newly diagnosed diabetes 08/21/2024 Assessment & Plan (08/21/2024 4:41 PM EDT): Diabetes is: not controlled - Lab Results Component Value Date HGBA1C 6.9 (A) 08/21/2024 HGBA1C 6.2 (H) 05/27/2024 HGBA1C 6.0 06/15/2023 - Lab Results Component Value Date CREATININE 0.76 05/27/2024 -Changes: I started patient again on metformin 500mg BID - Diabetic eye exam:pending - Diabetic foot exam:pending - Continue lifestyle modifications - Continue current medications - Follow up: 3 months Bilateral hand pain 05/21/2024 Assessment & Plan (05/21/2024 2:49 PM EDT): Likely carpel tunnel syndrome I will prescribe for her bilateral wrist braces to be use at bed time MARGO (generalized anxiety disorder) 01/30/2024 Assessment & Plan (05/01/2024 9:26 AM EDT): During IBH Consult Marilyn presenting with depressed mood, loss of interests/pleasure , changes in sleep difficulty falling asleep, change in appetite or weight overeating, psychomotor retardation, trouble concentrating, thoughts of worthlessness or guilt, fatigue/loss of energy, inappropriate guilt , hopelessness, worthlessness , difficulty concentrating and excessive worry/anxiety, difficulty controlling worry, restless/keyed up/On edge, easily fatigued, difficulty concentrating/Mind going blank , irritability, and sleep disturbance difficulty falling asleep; for a period of 24+ mo, for all symptoms in the context of family issues, financial concern, and illness or family illness. Marilyn reports feeling emotionally overwhelmed. Complicated relationship with her son is identified as main trigger for sxs, as well as financial insecurities. Marilyn is aware of importance of using coping techniques but due to amount of stress and constant racing thoughts she is unable to do so. She's connected with psychotherapy and psychopharmacology at [facility]. clinician engaged Marilyn with active, reflective and empathetic listening. Reviewed and assessed for risks, current stressors and protective factors using open-ended questions. clinician will submit a request for CM to assist with financial insecurities. PLAN: (check all that apply) Continue with current services (defined as services in the past 12 months) Behavioral Health Integration Plan Patient Self Plan Patient to utilize skills provided in intervention , [facility] as [facility], Comply with medication , Patient to engage in OP therapy , and Patient to reach out to [facility] as needed [facility] clinician will provide support to patient during next medical appointment if needed. Patient is connected with [facility] for OP individual therapy and psychopharmacology. Assessment & Plan (01/30/2024 1:34 PM EDT): During IB Consult Marilyn presenting with depressed mood, loss of interests/pleasure , change in appetite or weight overeating, psychomotor retardation, trouble concentrating, thoughts of worthlessness or guilt, fatigue/loss of energy, inappropriate guilt , hopelessness, worthlessness , difficulty concentrating and excessive worry/anxiety, difficulty controlling worry, restless/keyed up/On edge, easily fatigued, difficulty concentrating/Mind going blank , irritability, and sleep disturbance difficulty falling asleep; for a period of 18+ mo, for all symptoms in the context of illness or family illness, employment concern, and recent move. Marilyn is going through a difficult time with her kids. Depressed mood on and off, experienced panic attacks as well. Currently engaged in services with [facility]. Discussed plan to in place when having increase of symptoms. PLAN: (check all that apply) Continue with current services (defined as services in the past 12 months) . Currently engaged in OP services for therapy and psychopharmacology with [facility]. Severe episode of recurrent major depressive disorder, without psychotic features 01/30/2024 Assessment & Plan (05/01/2024 9:26 AM EDT): During IBH Consult Marilyn presenting with depressed mood, loss of interests/pleasure , changes in sleep difficulty falling asleep, change in appetite or weight overeating, psychomotor retardation, trouble concentrating, thoughts of worthlessness or guilt, fatigue/loss of energy, inappropriate guilt , hopelessness, worthlessness , difficulty concentrating and excessive worry/anxiety, difficulty controlling worry, restless/keyed up/On edge, easily fatigued, difficulty concentrating/Mind going blank , irritability, and sleep disturbance difficulty falling asleep; for a period of 24+ mo, for all symptoms in the context of family issues, financial concern, and illness or family illness. Marilyn reports feeling emotionally overwhelmed. Complicated relationship with her son is identified as main trigger for sxs, as well as financial insecurities. Marilyn is aware of importance of using coping techniques but due to amount of stress and constant racing thoughts she is unable to do so. She's connected with psychotherapy and psychopharmacology at [facility]. clinician engaged Marilyn with active, reflective and empathetic listening. Reviewed and assessed for risks, current stressors and protective factors using open-ended questions. clinician will submit a request for CM to assist with financial insecurities. PLAN: (check all that apply) Continue with current services (defined as services in the past 12 months) Behavioral Health Integration Plan Patient Self Plan Patient to utilize skills provided in intervention , Patient to [facility] team as needed, Comply with medication , Patient to engage in OP therapy , and Patient to reach out to [facility] as needed [facility] clinician will provide support to patient during next medical appointment if needed. Patient is connected with [facility] for OP individual therapy and psychopharmacology. Assessment & Plan (01/30/2024 1:34 PM EDT): During IBH Consult Marilyn presenting with depressed mood, loss of interests/pleasure , change in appetite or weight overeating, psychomotor retardation, trouble concentrating, thoughts of worthlessness or guilt, fatigue/loss of energy, inappropriate guilt , hopelessness, worthlessness , difficulty concentrating and excessive worry/anxiety, difficulty controlling worry, restless/keyed up/On edge, easily fatigued, difficulty concentrating/Mind going blank , irritability, and sleep disturbance difficulty falling asleep; for a period of 18+ mo, for all symptoms in the context of illness or family illness, employment concern, and recent move. Marilyn is going through a difficult time with her kids. Depressed mood on and off, experienced panic attacks as well. Currently engaged in services with [facility]. Discussed plan to in place when having increase of symptoms. PLAN: (check all that apply) Continue with current services (defined as services in the past 12 months) . Currently engaged in OP services for therapy and psychopharmacology with [facility]. Family problems 01/30/2024 Assessment & Plan (05/01/2024 9:26 AM EDT): During IBH Consult Marilyn presenting with depressed mood, loss of interests/pleasure , changes in sleep difficulty falling asleep, change in appetite or weight overeating, psychomotor retardation, trouble concentrating, thoughts of worthlessness or guilt, fatigue/loss of energy, inappropriate guilt , hopelessness, worthlessness , difficulty concentrating and excessive worry/anxiety, difficulty controlling worry, restless/keyed up/On edge, easily fatigued, difficulty concentrating/Mind going blank , irritability, and sleep disturbance difficulty falling asleep; for a period of 24+ mo, for all symptoms in the context of family issues, financial concern, and illness or family illness. Marilyn reports feeling emotionally overwhelmed. Complicated relationship with her son is identified as main trigger for sxs, as well as financial insecurities. Marilyn is aware of importance of using coping techniques but due to amount of stress and constant racing thoughts she is unable to do so. She's connected with psychotherapy and psychopharmacology at [facility]. clinician engaged Marilyn with active, reflective and empathetic listening. Reviewed and assessed for risks, current stressors and protective factors using open-ended questions. clinician will submit a request for CM to assist with financial insecurities. PLAN: (check all that apply) Continue with current services (defined as services in the past 12 months) Behavioral Health Integration Plan Patient Self Plan Patient to utilize skills provided in intervention , Patient to reach out to [facility] team as needed, Comply with medication , Patient to engage in OP therapy , and Patient to reach out to [facility] as needed [facility] clinician will provide support to patient during next medical appointment if needed. Patient is connected with [facility] for OP individual therapy and psychopharmacology. Assessment & Plan (01/30/2024 1:34 PM EDT): During IBH Consult Marilyn presenting with depressed mood, loss of interests/pleasure , change in appetite or weight overeating, psychomotor retardation, trouble concentrating, thoughts of worthlessness or guilt, fatigue/loss of energy, inappropriate guilt , hopelessness, worthlessness , difficulty concentrating and excessive worry/anxiety, difficulty controlling worry, restless/keyed up/On edge, easily fatigued, difficulty concentrating/Mind going blank , irritability, and sleep disturbance difficulty falling asleep; for a period of 18+ mo, for all symptoms in the context of illness or family illness, employment concern, and recent move. Marilyn is going through a difficult time with her kids. Depressed mood on and off, experienced panic attacks as well. Currently engaged in services with [facility]. Discussed plan to in place when having increase of symptoms. PLAN: (check all that apply) Continue with current services (defined as services in the past 12 months) . Currently engaged in OP services for therapy and psychopharmacology with [facility]. Venous insufficiency 01/02/2024 Chronic midline low back pain without sciatica 1 12/12/2022 Assessment & Plan (10/11/2023 10:42 AM EST): Xray ordered [place] for gabapentin 100mg Q 8hrs Chronic pain of right knee 10/11/2023 Skin change 10/11/2023 Hydronephrosis 06/15/2023 Prediabetes 06/15/2023 Assessment & Plan (01/03/2024 10:05 AM EST): Today extensive discussion was done about life style modifications I advise healthy diet (low calorie) and cardiovascular exercise Assessment & Plan (07/07/2023 1:15 PM EDT): Today extensive discussion was done about life style modifications I advise healthy diet (low calorie) and cardiovascular exercise Assessment & Plan (06/15/2023 10:10 AM EDT): Lab results d/w pt Check RBS and A1c today Counseled re more frequent low calorie/carb meals. Encouraged physical activity as tolerated. Refer to church warden. FU w/ PCP. Pure hypercholesterolemia 06/15/2023 Assessment & Plan (06/15/2023 10:11 AM EDT): We discussed re rx options. She wants to be more strict with life style modifications. Recommended moderate amount of exercise and increased consumption of fruit, vegetables, fish and high fiber foods. We discussed about avoiding consumption of highly saturated fats or trans fats. FU w/ PCP Overweight (BMI 25.0-29.9) 06/15/2023 Assessment & Plan (06/15/2023 10:11 AM EDT): Discussed re weight reduction options including exercise, life style modifications, diet, referral to supply specialist. Discussed re lower calorie intake, increase dietary fiber Encounter for preventive health examination 05/30 Assessment & Plan (06/15/2023 10:15 AM EDT): Discussed with patient re increase fresh fruit and vegetable intake. Counseled re moderate exercise as tolerated, up to 20min/d Patient feels safe at home. PAP smear: UTD, next due 2026 Mammogram: to be ordered Eye exam: UTD, next due 2023 CRC screen: pt awaiting appt Lipids/FBS: UTD Vaccinations: Hep B #1 today, will obtain Tb test; counseled re: COVID booster at walk-in clinic, will need flu vax in fall Dental visit: UTD, next due JUL 2023 Right hip pain 06/15/2023 Assessment & Plan (06/15/2023 10:16 AM EDT): Use tylenol+flexeril+heat to affected area -FU w/ PCP UTI symptoms 06/15/2023 Assessment & Plan (12/02/2023 7:09 PM EST): Urine dipstick ketones trace ,blood small, protein 30,Nit + and LE mod Will tx empirically for uncomplicated UTI -pyridium x 2 days -cephalexin 500 mg Q 6 h x 3 days for uncomplicated UTI ( will hold on macrobid use for reported allergy hx) -Cl/Gn urine and UA w reflex cx -will call pt if needs to change ATB -alarm signs and symptoms disussed w pt in length Epigastric pain 06/15/2023 Assessment & Plan (06/15/2023 2:50 PM EDT): R/o gastritis Empiric tx w/ omeprazole x 2 mos FU w/ PCP Dizziness 06/15/2023 Assessment & Plan (06/15/2023 10:18 AM EDT): Start labs today HCG test today FU w/ PCP Other constipation 05/24/2023 Assessment & Plan (05/24/2023 11:26 AM EDT): I advise to increase water and fiber on her diet Colon cancer screening 05/24/2023 Assessment & Plan (06/15/2023 10:22 AM EDT): Pt has referral and will call back if not received in 1 mos Lower extremity edema 05/24/2023 Assessment & Plan (07/07/2023 1:14 PM EDT): Likely venous insufficiency, compression stocking where prescribed for patient Assessment & Plan (06/01/2023 9:30 AM EDT): Likely venous insufficiency Compression stockings 15-20 mmhg prescribed today Abdominal bloating 05/15/2023 Acid reflux 05/15/2023 Atypical chest pain 05/15/2023 Chronic pelvic pain in female 05/15/2023 Assessment & Plan (12/12/2024 12:47 PM EST): -Good engagement and participation with Group Medical Visit model -Encouraged multifactorial approach to pain control including pharm and non- pharm modalities -UTOX as expected, pill count 4 short (although pt reports has the remaining 4 at home). See documentation lead. Assessment & Plan (07/09/2024 4:35 PM EDT): Patient participated in chronic pain group to the fullest of her ability and willingness Utox and Pill counts as expected Continue to encourage non-pharm methods of pain mgmt as well Acute low back pain 05/15/2023 Chronic tension-type headache 05/15/2023 Complex cyst of left ovary 05/15/2023 Cyst of ovary 05/15/2023 Essential hypertension 05/15/2023 Assessment & Plan (11/05/2024 3:55 PM EST): I advised: - Aerobic exercise to reduce BP. Initial goal of 30 min walk 3-5x/week. Increase as tolerated. - low-sodium diet (goal: <2g/day) and heart healthy diet such as DASH to reduce BP and prevent ASCVD. - Home BP monitoring 1-2 x day with goal of <140/90. - Seek immediate medical attention for chest pain, palpitations, SOB, syncope, or sudden changes in mental status. - Do not change or discontinue current prescriptions without first consulting health care provider Assessment & Plan (08/21/2024 4:40 PM EDT): Stable c/w same interventions Assessment & Plan (05/21/2024 2:48 PM EDT): - Aerobic exercise to reduce BP. Initial goal of 30 min walk 3-5x/week. Increase as tolerated. - low-sodium diet (goal: <2g/day) and heart healthy diet such as DASH to reduce BP and prevent ASCVD. - Home BP monitoring 1-2 x day with goal of <140/90. - Seek immediate medical attention for chest pain, palpitations, SOB, syncope, or sudden changes in mental status. - Do not change or discontinue current prescriptions without first consulting health care provider Assessment & Plan (01/03/2024 10:04 AM EST): Maintenance: BMP: ordered today Lipid Panel: ordered today ASCVD Risk: Calculate pending updated labs - Aerobic exercise to reduce BP. Initial goal of 30 min walk 3-5x/week. Increase as tolerated. - low-sodium diet (goal: <2g/day) and heart healthy diet such as DASH to reduce BP and prevent ASCVD. - Home BP monitoring 1-2 x day with goal of <140/90. - Seek immediate medical attention for chest pain, palpitations, SOB, syncope, or sudden changes in mental status. - Do not change or discontinue current prescriptions without first consulting health care provider Assessment & Plan (12/02/2023 7:10 PM EST): Mild elevated BP possible reactive w current symptoms -to f w PCP at her upcoming visit this month Assessment & Plan (10/11/2023 10:41 AM EST): - I advise to take her medication every day I send again her lisinopril 20mg to the pharmacy -It was advise: - Aerobic exercise to reduce BP. Initial goal of 30 min walk 3-5x/week. Increase as tolerated. - low-sodium diet (goal: <2g/day) and heart healthy diet such as DASH to reduce BP and prevent ASCVD. - Home BP monitoring 1-2 x day with goal of <140/90. - Seek immediate medical attention for chest pain, palpitations, SOB, syncope, or sudden changes in mental status. - Do not change or discontinue current prescriptions without first consulting health care provider Assessment & Plan (07/07/2023 1:14 PM EDT): - Aerobic exercise to reduce BP. Initial goal of 30 min walk 3-5x/week. Increase as tolerated. - low-sodium diet (goal: <2g/day) and heart healthy diet such as DASH to reduce BP and prevent ASCVD. - Home BP monitoring 1-2 x day with goal of <140/90. - Seek immediate medical attention for chest pain, palpitations, SOB, syncope, or sudden changes in mental status. - Do not change or discontinue current prescriptions without first consulting health care provider Assessment & Plan (05/24/2023 11:26 AM EDT): - Aerobic exercise to reduce BP. Initial goal of 30 min walk 3-5x/week. Increase as tolerated. - low-sodium diet (goal: <2g/day) and heart healthy diet such as DASH to reduce BP and prevent ASCVD. - Home BP monitoring 1-2 x day with goal of <140/90. - Seek immediate medical attention for chest pain, palpitations, SOB, syncope, or sudden changes in mental status. - Do not change or discontinue current prescriptions without first consulting health care provider Fatigue 05/15/2023 Hydrosalpinx 05/15/2023 Loss of hair 05/15/2023 Metrorrhagia 05/15/2023 Dyspareunia in female 05/15/2023 Staghorn calculus 05/15/2023 Vaginal discharge 05/15/2023 Mood disorder 07/07/2017 Encounters Date Type Department Care Team Description 12/17/2024 Refill [facility] [address] [place] [address] Rima Sequeira MD Fibromyalgia 12/13/2024 Refill [facility] [address] [place] [address] Lisa Brewer MD Fibromyalgia 12/11/2024 Telephone [facility] [address] [place] [address] Che Hall RN Tramadol dscrepancy & BPI Scoring 12/10/2024 9:45 AM EST Office Visit [facility] [address] [place] [address] Gladis Ibrahim FNP Chronic pelvic pain in female (Primary Dx); Long-term current use of opiate analgesic 12/10/2024 Travel 11/29/2024 Refill [facility] [address] [place] [address] Rima Sequeira MD Right hip pain 11/25/2024 Refill [facility] [address] [place] [address] Rima Sequeira MD Fibromyalgia 11/05/2024 10:45 AM EST Office Visit [facility] [address] [place] [phone] Rima Sequeira MD Type 2 diabetes mellitus with hyperglycemia, without long-term current use of insulin ([facility]) (Primary Dx); Essential hypertension; Encounter for immunization 11/05/2024 Travel 10/29/2024 Patient Outreach [facility] [address] [place] [address] Rima Sequeira MD Pre-visit Planning (SDOH screening completed on 10/10/2024) 10/29/[address] [address] Rima Sequeira MD Med Refill 10/29/[address] [address] Rima Sequeira MD Fibromyalgia 10/01/[address] [address] Rmia Sequeira MD Med Refill 09/30/2024 Refill [facility] [address] [place] [phone] Rima Sequeira MD Fibromyalgia; Right hip pain 09/27/2024 Refill [facility] [address] [place] [phone] Rima Sequeira MD from Last 3 Months Immunizations Name Administration Dates Next Due Hep B, adult 06/15/2023 Influenza injectable quadriv alent preservative free 09/14/2021,09/24/2019,11/06/2018 Influenza, seasonal, injecta ble, preservative free 11/05/2024 Tdap 06/05/2017 Social History Tobacco Use Types Packs/Day Years Used Date Smoking Tobacco: Never Passive Smoke Exposure: Never Smokeless Tobacco: Never Tobacco Cessation:Counseling Given: Not Answered Alcohol Use Standard Drinks/Week Comments Never 0 (1 standard drink = 0.6 oz pur e alcohol) Depression Answer Date Recorded Patient Health Questionnaire-9 Score 16 11/05/2024 Patient Health Questionnaire-9 Score 16 11/05/2024 Last PHQ-9: Questionnaire Data Not on file 0 11/05/2024 Housing Stability Answer Date Recorded What is [...] Date Recorded Patient Health Questionnaire-2 Score 6 11/05/2024 Comments Unknown Sex and Gender Information Value Date Recorded Sex Assigned at Female 08/29/2022 10:22 AM EDT Legal Sex Female 10:22 AM EDT Gender Identity Female 08/29/2022 10:22 AM EDT Sexual Orientation Choose not to disclose 2021 10:22 AM EDT Last Filed Vital Signs Vital Sign Reading Time Taken Comments Blood Pressure 131/71 11/05/2024 10:55 AM EST Pulse 70 11/05/2024 10:55 AM EST Temperature 36 ??C (96.8 ??F) 11/05/2024 10:55 AM EST Respiratory Rate 20 11/05/2024 10:55 AM EST Oxygen Saturation 100% 11/05/2024 10:55 AM EST Inhaled Oxygen Concentration - - Weight 82.6 kg (182 lb) 11/05/2024 10:55 AM EST Height 162.6 cm (5' 4 ) 11/05/2024 10:55 AM EST Body Mass Index 31.24 11/05/2024 10:55 AM EST Plan of Treatment Upcoming Encounters Date Type Department Care Team (Late st Contact Info) Description 02/04/2025 9:45 AM EDT Office Visit [facility] [address] [place], [place] [phone] 04/03/2025 1:00 PM EDT Office Visit [facility] [address] [place] [address] Oanh Ramos, OD [address] [place] [address] Health Maintenance Due Date Last Done Comments CT Colonography 1978 Colonoscopy 1978 Colorectal Cancer Screening 1978 FIT DNA/Cologuard 1978 FIT 1978 FOBT 1978 Sigmoidoscopy 1978 Diabetes: Foot Exam 01/10/1988 Eye Exam 01/10/1988 Alcohol/Substance Use Screening 1990 Family Planning (PISQ) 1993 Diabetes: Urine Protein Screening 1997 Pneumococcal Vaccine: Pediatrics (0 to 5 Years) and At-Risk Patients (6 to 49) Years) (1 of 2 - PCV) 1997 Hepatitis B Vaccines (2 of 3 - 19+ 3-dose series) 07/13/2023 06/15/2023 COVID-19 Vaccine (2023- season) 2024 04/02/2021, 03/04/2021 SDOH Screening 12/06/2024 12/06/2023 Mammogram 02/14/2025 02/15/2024, 04/01, 07/12/2019, Additional history exists Depression Monitoring (PHQ-9) 05/05/2025 11/05/2024, 11/05/2024 Diabetes: Hemoglobin A1C 05/05/2025 025, 08/21/2024, 05/27/2024, Additional history exists Lipid Panel 05/27/2025 05/27/2024, 04/30, 07/15/2020 Depression Screening 11/05/2025 11/05/2024, 11/05/19 25 Tobacco Screening 11/05/2025 11/05/2024 Cervical Cancer Screening 04/27/2027 HPV/Cotest 04/27/2027 04/27/2022, 03/31, 09/14/2021 Pap Smear 04/27/2027 04/27/2022, 09/14/2021 DTaP/Tdap/Td Vaccines (2 - Td or Tdap) 06/05/2027 06/05/2017 Zoster Vaccines (1 of 2) 01/10/2028 RSV Patients and Patients Aged 60 years or older (1 - 1-dose 75+ series) 2053 HIV Screening Completed 07/15/2020 Hepatitis C Screening Completed 05/24/2023, 020 Influenza Vaccine Completed 11/05/2024, , 09/24/2019, Additional history exists HIB Vaccines Aged Out No longer eligi ble based on patient's age to complete this topic HPV Vaccines Aged Out No longer eligi ble based on patient's age to complete this topic Hepatitis A Vaccines Aged Out No long er eligible based on patient's age to complete this topic IPV Vaccines Aged Out No longer eligi ble based on patient's age to complete this topic Meningococcal Vaccine Aged Out No jude zayra eligible based on patient's age to complete this topic RSV under 20 months Aged Out No longe r eligible based on patient's age to complete this topic Rotavirus Vaccines Aged Out No longer eligible based on patient's age to complete this topic Procedures Procedure Name Priority Date/Time Associated Diagnosis Comments POCT CHECO-14 URINE DRUG SCREEN Routine 12/11/2024 8:07 AM EST Chronic pelvic pain in female POCT GLYCATED HEMOGLOBIN, TOTAL Routine 11/05/2024 11:44 AM EST Type 2 diabetes mellitus with hyperglycemia, without long-term current use of insulin (CMS/HCC) POCT GLUCOSE Routine 11/05/2024 11:44 AM EST Type 2 diabetes mellitus with hyperglycemia, without long-term current use of insulin (CMS/HCC) LIPID PANEL, STANDARD Routine 05/27/2024 10:40 AM EDT Essential hypertension BI MAMMOGRAM SCREENING TOMOSYNTHESIS BILATERAL Routine 02/15/2024 2:18 PM EDT HEPATITIS PANEL, GENERAL Routine 05/24/2023 12:12 PM EDT ZZZ HISTORICAL HPV E6/E7 RFLX TORITO 16 18/45 Routine 04/27/2022 1:35 PM EDT HM PAP/HPV Routine 04/27/2022 HIV 1/2 ANTIGEN/ANTIBODY, FOURTH GENERATION W/RFL Routine 07/15/2020 1:35 PM EDT from Last 3 Months or Most Recently Relevant to Health Maintenance Results * POCT CHECO-14 Urine Drug Screen (12/11/2024 8:07 AM EST) Urine Urine specimen obtained by clean catch procedure / Unknown 12/11/2024 8:07 AM EST Narrative Che Hall RN - 12/11/2024 8:07 AM EST UTOX cup Lot#[id number] Exp. 07/24/26 Internal Pass Control Negative for all substances Gladis Ibrahim FIELD HAULER POINT OF CARE TEST ENTER/EDIT ORDERABLES Final Result * (ABNORMAL) POCT HGB A1C (11/05/2024 11:44 AM EST) Hemoglobin A1C 6.9(A) 4.0 - 6.0 % QC Media Lot # [id number] Lot# Expiration Date 3,026 Blood 11/05/2024 11:4 4 AM EST Rima García MD POINT OF CARE TEST ENTER/EDIT ORDERABLES Edited Result - Final * POCT Glucose (11/05/2024 11:44 AM EST) Glucose Blood, POC 134 60 - 200 mg/dL QC Media Lot # [id number] Lot# Expiration Date 5161,025 Blood Capillary blood specimen / Unknown 11/05/2024 11:44 AM EST Rima García MD POINT OF CARE TEST ENTER/EDIT ORDERABLES Edited Result - Final * (ABNORMAL) Lipid Panel, Standard (05/27/2024 10:40 AM EDT) Triglycerides 89 <150 mg/dL [facility] Comment:Desirable Triglyceri de: less than 150 mg/dLBorderline High Triglyceride 150-199 mg/dLHigh Triglyceride: 200-499 mg/dLVery High Triglyceride: greater than or equal to 5OO mg/dL Cholesterol 191 <200 mg/dL [facility] Comment:Desirable Cholestero l: less than 200 mg/dLBorderline High Cholesterol: 200-239 mg/dLHigh Cholesterol: greater than 239 mg/dL LDL Cholesterol Calculated 147(H) <100 mg/dL [facility] Comment:Desirable LDL: less than 100 mg/dLNear Optimal/Above Optimal LDL: 110- 129 mg/dLBorderline High LDL: 130-159 mg/dLHigh LDL: 160-189 mg/dLVery High LDL: greater than or equal to 190 mg/dL HDL Cholesterol 27(L) >40 mg/dL [facility] Comment:Desirable HDL: great er than 40 mg/dL Note: This HDL assay may give artificially low results in patients with liver disease. Blood Venous blood specimen / Unknown 05/27/2024 10:40 AM EDT 05/27/2024 1:19 PM EDT Rima García MD LAB BLOOD ORDERABLES Final Result [facility] [address] [place] [phone] * BI Mammogram Screening Tomosynthesis Bilateral (02/15/2024 2:18 PM EDT) Anatomical Region Laterality Modality Breast Bilateral Mammography 02/15/2024 2:18 PM EDT Narrative 03/17/2024 9:57 PM EDT ? [facility] ?[address] ?[place] [address] ? Mammography Report ? Signed ? Patient: Mitchel García,Mariyln ?MR#: [id number] ?? [id number] ? : 1980 ?Acct:[id number] ? Age/Sex: 44 / F ?ADM Date: 02/15/24 ? Loc: HO.US ? Attending Dr: Gladis Fox METAL CUT OFF SAW TENDER ? Ordering Physician: Maco Castaneda MD ?Results: 1Negativ ?? e ? Date of Service: 02/15/24 ?Follow Up: 1 Year From Orig ?? inal Mammogram ? Procedure(s): MM tomosynthesis screening BI ?? Accession Number(s): [id number] ? cc: Rima Sequeira MD; Maco Castaneda MD ? EXAMINATION: ?? MM SCREENING DIGITAL BREAST TOMOSYNTHESIS, BILATERAL ? CLINICAL INFORMATION: ? Screening. Asymptomatic. ? COMPARISON: ?? Mammography: This study is compared with prior exams dating back to ?? 2018. ? TECHNIQUE: ?? Digital breast tomosynthesis is performed in both the craniocaudal and ?? mediolateral oblique views along with computer-aided detection (CAD). ?? Synthesized 2D images are generated from the tomosynthesis. ? FINDINGS: ?? There are scattered areas of fibroglandular density (ACR BI-RADS breast ?? composition Category b). ? There are no significant masses, abnormal calcifications, or other ?? abnormalities. ? MM/MM tomosynthesis screening BI ?? IMPRESSION: ?? No mammographic evidence of malignancy. ? ASSESSMENT: ? BI-RADS BI-RADS 1 - Negative ? RECOMMENDATION: ?? Routine annual mammography screening. ? 1 year F/U ? This examination should not preclude the clinical evaluation of a ?? suspicious palpable abnormality. ? This patient's information was entered into a reminder system with a ?? target due date for their next mammogram. ? Dictated By: ?Emma Mcmillan MD ? Signed By: ?<Electronically signed by Emma Mcmillan MD in OV> ? 03/17/243 ? DD/ 1418 ? TD/TT: ? Vice President Of News: ? Procedure Note eGraldine, Image - 03/17/2024 [place] [address] Mammography Report Signed Patient: Lamar HaydensMR#: M [id number] : 1980Acct:[id number] Age/Sex: 44 / FADM Date: 02/15/24 Loc: . Attending Dr: Gladis Fox METAL CUT OFF SAW TENDER Ordering Physician: Maco Castaneda MDResults: 1Negativ e Date of Service: 02/15/24Follow Up: 1 Year From Orig inal Mammogram Procedure(s): MM tomosynthesis screening BI Accession Number(s): [id number] cc: Rima Sequeira MD; Maco Castaneda MD EXAMINATION: MM SCREENING DIGITAL BREAST TOMOSYNTHESIS, BILATERAL CLINICAL INFORMATION: Screening. Asymptomatic. COMPARISON: Mammography: This study is compared with prior exams dating back to 2018. TECHNIQUE: Digital breast tomosynthesis is performed in both the craniocaudal and mediolateral oblique views along with computer-aided detection (CAD). Synthesized 2D images are generated from the tomosynthesis. FINDINGS: There are scattered areas of fibroglandular density (ACR BI-RADS breast composition Category b). There are no significant masses, abnormal calcifications, or other abnormalities. MM/MM tomosynthesis screening BI IMPRESSION: No mammographic evidence of malignancy. ASSESSMENT: BI-RADS BI-RADS 1 - Negative RECOMMENDATION: Routine annual mammography screening. 1 year F/U This examination should not preclude the clinical evaluation of a suspicious palpable abnormality. This patient's information was entered into a reminder system with a target due date for their next mammogram. Dictated By: Emma Mcmillan MD Signed By: <Electronically signed by Emma Mcmillan MD in OV> 03/17/24 2153 DD/ 1418 TD/TT: Vice President Of News: [facility] External Provider IMG BI PROCEDURES Edited Result - Final * Hepatitis Panel, General (05/24/2023 12:12 PM EDT) Hepatitis A IgM Nonreactive Nonreactive [facility] Comment:IgM antibodies to HANNA V not detected; does not exclude earlyacute or recovered HAV infection. ~Hepatitis B Surface Antibody NONREACTIVE Nonreactive [facility] Comment:Nonreactive: < 8.00 mIU/mL Hepatitis B Core Antibody Nonreactive Nonreactive [facility] Hepatitis C Antibody Nonreactive Nonreactive [facility] Comment:Antibodies to HCV no t detected; does not exclude early acuteHCV infection. Hepatitis B Surface Ag Negative Negative [facility] 05/24/2023 12:1 2 PM EDT 05/24/2023 1:07 PM EDT Rima García MD LAB BLOOD ORDERABLES Final Result [facility] [address] [place] [phone] * HPV E6/E7 RFLX TORITO 16 18/45 (04/27/2022 1:35 PM EDT) HPV mRNA E6/E7 rflx Not Detected Not Detected [facility] Comment: Methodology: Custom Protection Officer-Mediated Amplification This assay detects E6/E7 viral messenger RNA (mRNA) from 14 high-risk HPV types (16,18,31,33,35,39,45,51,52,56,58,59,66,68). Cervical sources are required for HPV testing. If a vaginal source from a patient who has had a total hysterectomy with removal of cervix was submitted, please contact the testing laboratory for alternative testing options. For additional information, please refer to http://[employer]/faq/RQY573n8 (This link if provided for information/ educational purposes only.) THIS TEST WAS PERFORMED AT: [facility] [address] [place] [address] [address] [place], [place] ??[phone] JAYMIE LAND MD 04/27/2022 1:35 PM EDT Maco Castaneda MD HISTORICAL/NON ORDERABLE LABS Fi nal Result [facility] [address] * Hm Pap Smear (04/27/2022) Historical Provider HEALTH MAINTENANCE Final Result * HIV 1/2 ANTIGEN/ANTIBODY,FOURTH GENERATION W/RFL (07/15/2020 1:35 PM EDT) HIV-1/2 ANTIGEN AND ANTIBODIES, 4TH GENERATION W/ REFLEX NON-REACT KEYON NON-REACT KEYON [facility] Comment: HIV-1 antigen and HIV-1/HIV-2 antibodies were not detected. There is no laboratory evidence of HIV infection. ?? PLEASE NOTE: This information has been disclosed to you from records whose confidentiality may be protected by state law. ??If your state requires such protection, then the state law prohibits you from making any further disclosure of the information without the specific written consent of the person to whom it pertains, or as otherwise permitted by law. A general authorization for the release of medical or other information is NOT sufficient for this purpose. ? For additional information please refer to http://[employer]/faq/NMA106 (This link is being provided for informational/ educational purposes only.) ? The performance of this assay has not been clinically validated in patients less than 2 years old. ?? HIV-1/2 ANTIGEN AND ANTIBODIES, 4TH GENERATION W/ REFLEX NON-REACT KEYON NON-REACT KEYON [facility] Comment: HIV-1 antigen and HIV-1/HIV-2 antibodies were not detected. There is no laboratory evidence of HIV infection. ?? PLEASE NOTE: This information has been disclosed to you from records whose confidentiality may be protected by state law. ??If your state requires such protection, then the state law prohibits you from making any further disclosure of the information without the specific written consent of the person to whom it pertains, or as otherwise permitted by law. A general authorization for the release of medical or other information is NOT sufficient for this purpose. ? For additional information please refer to http://education.[employer]/faq/EJL908 (This link is being provided for informational/ educational purposes only.) ? The performance of this assay has not been clinically validated in patients less than 2 years old. ?? 07/15/2020 1:35 PM EDT Rima García MD LAB BLOOD ORDERABLES Final Result [facility] [address] from Last 3 Months or Most Recently Relevant to Health Maintenance Insurance [address] [place] [address] C3 Care Teams Dosier Operator Relationship Specialty Start Date End Date Rima Sequeira MD [address] [place] [phone] PCP - General Family Medicine 11/06/18
--- OUTSIDE RECORDS SUMMARY | 2024-12-17 14:07 | XMS_ITS | Encounter Summary ---
Author Organization [employer] Address [address] [place] [address] Care Team Providers Care Director Informatics Name Role Phone Rima Sequeira MD Primary Care Provide r Encounter Details Date Type Department Care Team (Late st Contact Info) Description 12/10/2024 9:45 AM EST Office Visit [facility] [address] [place] [address] Gladis Ibrahim FNP [address] [place] [address] Chronic pelvic pain in female (Primary Dx); Long-term current use of opiate analgesic Social History Tobacco Use Types Packs/Day Years [...] AM EDT documented as of this encounter Progress Notes * Gladis Ibrahim, LAMIN - 12/10/2024 9:45 AM EST Subjective: Marilyn García is a 44 y.o. female w/ PMH hypertension, chronic pelvic pain, T2DM, and fatigue, who presents to the office for - Chronic Pain Clinic Group visits. Initial Group visit: 07/09/24 Group Visit Number: 2 Last PCP visit: 11/05/24, Dr. Palmer Group Confidentiality signed: 07/09/24 Group Topic: [facility] [place] Chronic Pain History: Associated Diagnosis: Chronic pelvic pain - Following with MAIL SORTING SUPERVISOR - hx salpingectomy d/t hydrosalpinx in the setting of multiple adhesions Current pharm tx: Tramadol 50mg [id number] PRN. Also prescribed Alprazolam 1mg through outside provider (listed on chart at daily PRN, although per PDMP appears to be BID) Medication: States taking medication as prescribed. Related Specialists: MAIL SORTING SUPERVISOR Functional Goals: taking care of her children Other substance use: Tobacco: no Marijuana: no Alcohol: no Illicit substances: no Review of Systems Constitutional: Negative. Respiratory: Negative. Cardiovascular: Negative. Genitourinary: Positive for pelvic pain. Musculoskeletal: Positive for arthralgias. Physical Exam Constitutional: Appearance: Normal appearance. Pulmonary: Effort: Pulmonary effort is normal. Neurological: Mental Status: She is alert and oriented to person, place, and time. Psychiatric: Mood and Affect: Mood normal. Behavior: Behavior normal. Problem List Items Addressed This Visit Nervous Chronic pelvic pain in female - Primary Current Assessment & Plan -Good engagement and participation with Group Medical Visit model -Encouraged multifactorial approach to pain control including pharm and non- pharm modalities -UTOX as expected, pill count 4 short (although pt reports has the remaining 4 at home). See science consultant. Relevant Orders POCT CHECO-14 Urine Drug Screen (Completed) Other Long-term current use of opiate analgesic Overview Medication: Tramadol 50mg Q6H PRN Indication: chronic pelvic pain Last [facility] [employer] [employer] Agreement: 04/02/24 Follow up: 1-2 months for Group Chronic Pain Clinic. Follow up as scheduled with PCP, sooner as needed. * Che Hall RN - 12/10/2024 9:45 AM EST [facility] [employer] [facility] [employer] insurance sales associate: PDMP reviewed today. Last fill date: 11/28/24 Tramadol 50mg count was 2, anticipated 6 to be remaining. Pt reported to [facility] [employer] Nurse that she has4 pills at home in separate container. UTOX completed. Negative for all substances: AMP, BAR, BUP, BZO, BALWINDER, FTY, MDMA, MET, MOP, MTD, OXY, PCP, TCA, THC. UTOX as expected. BPI updated today. Pain severity score of 9, activity interference score of 4.9. Previous BPI completed 04/02/24 with pain severity score of 9.5, activity interference score of 8.6. Will update PCP with BPI scoring. documented in this encounter Miscellaneous Notes * Assessment & Plan Note - LAMIN Aguero - 12/10/2024 5:10 PM ESTAssociated Problem(s): Chronic pelvic pain in female -Good engagement and participation with Group Medical Visit model -Encouraged multifactorial approach to pain control including pharm and non- pharm modalities -UTOX as expected, pill count 4 short (although pt reports has the remaining 4 at home). See science consultant. documented in this encounter Plan of Treatment Upcoming Encounters Date Type Department Care Team (Late st Contact Info) Description 02/04/2025 9:45 AM EDT Office Visit [facility] [address] [place] [address] 04/03/2025 1:00 PM EDT Office Visit [facility] [address] [place] [address] Oanh Ramos, OD [address] [place] [address] documented as of this encounter Procedures Procedure Name Priority Date/Time Associated Diagnosis Comments POCT CHECO-14 URINE DRUG SCREEN Routine 12/11/2024 8:07 AM EST Chronic pelvic pain in female documented in this encounter Results * POCT CHECO-14 Urine Drug Screen (12/11/2024 8:07 AM EST) Urine Urine specimen obtained by clean catch procedure / Unknown 12/11/2024 8:07 AM EST Che Clement RN - 12/11/2024 8:07 AM EST UTOX cup Lot#[id number] Exp. 07/24/26 Internal Pass Control Negative for all substances Gladis Ibrahim WHIZZER HAND POINT OF CARE TEST ENTER/EDIT ORDERABLES Final Result documented in this encounter Visit Diagnoses Diagnosis Chronic pelvic pain in female- Primary Unspecified symptom associated with female genital organs Long-term current use of opiate analgesic Encounter for long-term (current) use of other medications documented in this encounter Additional Health Concerns Assessment Noted Time PHQ-9 Depression Total Score: 16 025 10:56 AM EST documented as of this encounter Care Teams Director Informatics Relationship Specialty Start Date End Date Rima Sequeira MD [address] [place] [address] PCP - General Family Medicine 11/06/18 documented as of this encounter
--- OUTSIDE RECORDS SUMMARY | 2024-12-17 14:07 | XMS_ITS | Encounter Summary ---
Author Organization [employer] Address [address] [facility] [address] 7t [place] [address] Care Team Providers Care Safety Engineer Pressure Vessels Name Role Phone Rima Sequeria MD Primary Care Provide r Encounter Details Date Type Department Care Team (Late st Contact Info) Description 12/17/2024 Refill [facility] [address] [place], [place] [phone] Rima Sequeira MD [address] [place] [address] Fibromyalgia Social History Tobacco Use Types Packs/Day [...] as of this encounter Miscellaneous Notes * Addendum Note - Laura Hall RN - 12/17/2024 12:10 PM ESTAddended by: LAURA HALL on: 12/17/2024 12:10 PM Modules accepted: Orders * Telephone Encounter - Mary Zhao LPN - 12/17/2024 11:21 AM EST Received fax from [employer] requesting refill on Tramadol 50 mg. documented in this encounter Plan of Treatment Upcoming Encounters Date Type Department Care Team (Late st Contact Info) Description 02/04/2025 9:45 AM EDT Office Visit [facility] MEDICINE [address] [place] [address] 04/03/2025 1:00 PM EDT Office Visit [facility] OPTOMETRY [address] [place] [address] Oanh Rmaos, OD 230 [place] [address] documented as of this encounter Visit Diagnoses Diagnosis Fibromyalgia Unspecified myalgia and myositis documented in this encounter Additional Health Concerns Assessment Noted Time PHQ-9 Depression Total Score: 16 025 10:56 AM EST documented as of this encounter Care Teams Safety Engineer Pressure Vessels Relationship Specialty Start Date End Date Rima Sequeira MD [address] [place] [address] PCP - General Family Medicine 11/06/18 documented as of this encounter
--- OUTSIDE RECORDS SUMMARY | 2024-12-17 14:07 | XMS_ITS | Encounter Summary ---
Author Organization [employer] [facility] Address [address] [facility] 7t [place] [address] Care Team Providers Care Cold Roll Packer Sheet Iron Name Role Phone Rima Sequeira MD Primary Care Provide r Reason for Visit * Reason Comments Med Refill Encounter Details Date Type Department Care Team (Late st Contact Info) Description 2023 Refill [facility] [address] [place] [address] Lisa Brewer MD [address] [place] [address] Fibromyalgia Social History Tobacco Use Types Packs/Day Years Used Date Smoking Tobacco: Never Smokeless Tobacco: Never Comments Unknown Sex and Gender Information Value [...] Description 02/04/2025 9:45 AM EDT Office Visit [facility] MEDICINE 230 [place], [place] [phone] 04/03/2025 1:00 PM EDT Office Visit [facility] OPTOMETRY [address] [place], [place] [phone] Oanh Ramos, OD 230 [place] [address] documented as of this encounter Visit Diagnoses Diagnosis Fibromyalgia Unspecified myalgia and myositis documented in this encounter Care Teams Cold Roll Packer Sheet Iron Relationship Specialty Start Date End Date Rima Sequeira MD [address] [place] [address] PCP - General Family Medicine 11/06/18 documented as of this encounter
--- OUTSIDE RECORDS SUMMARY | 2024-12-17 14:07 | XMS_ITS | Encounter Summary ---
Author Organization [employer] [facility] Address 75 [facility] 7t [place] [address] Care Team Providers Care Fruit Bar Maker Name Role Phone Rima Sequeira MD Primary Care Provide r Reason for Visit * Reason Onset Date Comments Tramadol dscrepancy & BPI Scoring 12/11/2024 Encounter Details Date Type Department Care Team (Late st Contact Info) Description 12/11/2024 Telephone [facility] MEDICINE [address] [place] [phone] Che Hall RN Tramadol dscrepancy & BPI Scoring Social History Tobacco Use Types Packs/Day Years [...] Telephone Encounter - Che Hall RN - 12/11/2024 8:11 AM EST Pt attended chronic pain group 12/10/24. Tramadol 50mg count was 2, anticipated 6 to be remaining. Pt reported to [facility] Nurse that she has4 pills at home in separate container. BPI updated today. Pain severity score of 9, activity interference score of 4.9. Previous BPI completed 04/02/24 with pain severity score of 9.5, activity interference score of 8.6. documented in this encounter Plan of Treatment Upcoming Encounters Date Type Department Care Team (Late st Contact Info) Description 02/04/2025 9:45 AM EDT Office Visit [facility] MEDICINE 230 [place] [address] 04/03/2025 1:00 PM EDT Office Visit [facility] OPTOMETRY [address] [place] [address] Richard, Oanh, OD 230 [place] [address] documented as of this encounter Visit Diagnoses Not on filedocumented in this encounter Additional Health Concerns Assessment Noted Time PHQ-9 Depression Total Score: 16 025 10:56 AM EST documented as of this encounter Care Teams Fruit Bar Maker Relationship Specialty Start Date End Date Rima Sequeira MD 230 [place] [address] PCP - General Family Medicine 11/06/18 documented as of this encounter
--- OUTSIDE RECORDS SUMMARY | 2024-12-17 14:07 | XMS_ITS | Encounter Summary ---
Author Organization [employer] [facility] Address 75 [facility] 7t [place] [address] Care Team Providers Care Molded Goods Embossing Press Operator Name Role Phone Rima Sequeira MD Primary Care Provide r Reason for Visit * Reason Comments Med Refill Encounter Details Date Type Department Care Team ([facility] st Contact Info) Description 11/25/2024 Refill [facility] MEDICINE [address] [place], [place] [phone] Rima Sequeira MD 230 [place] [address] Fibromyalgia Social History Tobacco Use Types Packs/Day [...] Description 02/04/2025 9:45 AM EDT Office Visit [facility] MEDICINE [address] [place] [address] 04/03/2025 1:00 PM EDT Office Visit [facility] OPTOMETRY [address] [place] [address] Oanh Ramos, OD 230 [place] [address] documented as of this encounter Visit Diagnoses Diagnosis Fibromyalgia Unspecified myalgia and myositis documented in this encounter Additional Health Concerns Assessment Noted Time PHQ-9 Depression Total Score: 16 025 10:56 AM EST documented as of this encounter Care Teams Molded Goods Embossing Press Operator Relationship Specialty Start Date End Date Rima Sequeira MD [address] [place] [address] PCP - General Family Medicine 11/06/18 documented as of this encounter
--- OUTSIDE RECORDS SUMMARY | 2024-12-17 14:07 | XMS_ITS | Encounter Summary ---
Author Organization [employer] [facility] Address [address] [facility] 7t [place] [address] Care Team Providers Care Core Composer Machine Tender Name Role Phone Rima Sequeira MD Primary Care Provide r Reason for Visit * Reason Comments Med Refill Encounter Details Date Type Department Care Team ([facility] st Contact Info) Description 11/29/2024 Refill [facility] MEDICINE 230 [place], [place] [phone] Rima Sequeira MD 230 [place] [address] Right hip pain Social History Tobacco Use Types Packs/Day Years [...] 02/04/2025 9:45 AM EDT Office Visit [facility] MEDICINE 230 [place] [address] 04/03/2025 1:00 PM EDT Office Visit [facility] OPTOMETRY [address] [place] [address] Richard, Oanh, OD [address] [place] [address] documented as of this encounter Visit Diagnoses Diagnosis Right hip pain Pain in joint, pelvic region and thigh documented in this encounter Additional Health Concerns Assessment Noted Time PHQ-9 Depression Total Score: 16 025 10:56 AM EST documented as of this encounter Care Teams Core Composer Machine Tender Relationship Specialty Start Date End Date Rima Sequeira MD 230 [place] [address] PCP - General Family Medicine 11/06/18 documented as of this encounter
--- OUTSIDE RECORDS SUMMARY | 2024-12-17 14:07 | XMS_ITS | Encounter Summary ---
Author Organization [employer] [facility] Address [address] [facility] 7t [place] [address] Care Team Providers Care Sub Acute Care Nurse Name Role Phone Rima Sequeira MD Primary Care Provide r Encounter Details Date Type Department Care Team (Latest Contact Info) Description 12/10/2024 Travel Social History Tobacco Use Types Packs/Day Years [...] Description 02/04/2025 9:45 AM EDT Office Visit [facility] MEDICINE 230 [place] [address] 04/03/2025 1:00 PM EDT Office Visit [facility] OPTOMETRY [address] [place] [address] Oanh Ramos, OD 230 [place] [address] documented as of this encounter Visit Diagnoses Not on filedocumented in this encounter Additional Health Concerns Assessment Noted Time PHQ-9 Depression Total Score: 16 025 10:56 AM EST documented as of this encounter Care Teams Sub Acute Care Nurse Relationship Specialty Start Date End Date Rima Sequeira MD 230 [place] [address] PCP - General Family Medicine 11/06/18 documented as of this encounter
--- OUTSIDE RECORDS SUMMARY | 2024-12-17 14:07 | XMS_ITS | Encounter Summary ---
Author Organization [employer] [facility] Address [address] [facility] [address] 7t [place] [address] Care Team Providers Care Computer Education Teacher Name Role Phone Rima Sequeira MD Primary Care Provide r Reason for Visit * Reason Onset Date Comments Medication Question 09/06/2024 Encounter Details Date Type Department Care Team ([facility] st Contact Info) Description 09/06/2024 Telephone [facility] MEDICINE 230 [place], [place] [phone] Rima Sequeira MD 230 [place] [address] Medication Question Social History Tobacco Use Types Packs/Day Years [...] Miscellaneous Notes * Telephone Encounter - Che Hernandez RN - 09/06/2024 4:22 PM EST TC placed to pharmacy in regards to below message. The pharmacist states that because the pt has freestyle test strips the provider would need to send freestyle lancets instead of trueplus. TC placed to pt [phone] via [facility] ID: [id number] in regards to above message. RN informed pt that RN spoke with pharmacist who reports a different brand needs to be sent to the pharmacy. RN will send a message to provider to send new lancets. Pt verbalizes understanding and agrees to plan. Pt to f/u PRN. RN to send message to PCP high priority to send freestyle lancets. * Telephone Encounter - Dre Phillips - 09/06/2024 4:09 PM EST Tc from [facility] pharmacy calling in regards to TRUEplus Lancets 33G misc stating that they do nothave them in stock. They also wanted to clarify because the rest of the glucose supply's was freestyle lite and so she was hoping pcp can send freestyle lite test strips instead. documented in this encounter Plan of Treatment Upcoming Encounters Date Type Department Care Team (Late st Contact Info) Description 02/04/2025 9:45 AM EDT Office Visit [facility] MEDICINE 230 [place] [address] 04/03/2025 1:00 PM EDT Office Visit [facility] OPTOMETRY [address] [place], [place] [phone] Oanh Ramos, OD [address] [place] [address] documented as of this encounter Visit Diagnoses Not on filedocumented in this encounter Additional Health Concerns Assessment Noted Time PHQ-9 Depression Total Score: 18 024 9:17 AM EDT documented as of this encounter Care Teams Computer Education Teacher Relationship Specialty Start Date End Date Rima Sequeira MD 230 [place] [address] PCP - General Family Medicine 11/06/18 documented as of this encounter
--- OUTSIDE RECORDS SUMMARY | 2024-12-17 14:07 | XMS_ITS | Encounter Summary ---
Author Organization [email or web address] [facility] Address [address] [place] [address] 7 [place] [address] Care Team Providers Care Electronic Resources Librarian Name Role Phone Rima Sequeira MD Primary Care Provide r Reason for Visit * Reason Onset Date Comments Med Refill 04/24/2023 Encounter Details Date Type Department Care Team ([facility] st Contact Info) Description 04/24/2023 Telephone [facility] MEDICINE 230 [place], [place] [phone] Rima Sequeira MD 230 [place] [address] Med Refill Social History Tobacco Use Types [...] encounter Miscellaneous Notes * Telephone Encounter - Dianna Falk RN - 04/24/2023 2:49 PM EDT duplicate * Telephone Encounter - Angella Nam - 04/24/2023 2:27 PM EDT Tc from pt requesting med refill for medication traMADol (Ultram) 50 MG tablet. documented in this encounter Plan of Treatment Upcoming Encounters Date Type Department Care Team (Late st Contact Info) Description 02/04/2025 9:45 AM EDT Office Visit [facility] MEDICINE 230 [place] [address] 04/03/2025 1:00 PM EDT Office Visit [facility] OPTOMETRY [address] [place], [place] [phone] Oanh Ramos, OD 230 [place] [address] documented as of this encounter Visit Diagnoses Not on filedocumented in this encounter Care Teams Electronic Resources Librarian Relationship Specialty Start Date End Date Rima Sequeira MD 230 [place], [place] [phone] PCP - General Family Medicine 11/06/18 documented as of this encounter
--- OUTSIDE RECORDS SUMMARY | 2024-12-17 14:07 | XMS_ITS | Encounter Summary ---
Author Organization [employer] [facility] Address [address] [facility] 7t [place] [address] Care Team Providers Care Sterilisation Technician Name Role Phone Rima Sequeira MD Primary Care Provide r Reason for Visit * Reason Comments Med Refill Encounter Details Date Type Department Care Team ([facility] st Contact Info) Description 12/13/2024 Refill [facility] MEDICINE 230 [place], [place] [phone] Lisa Brewer MD [address] [place], [place] [phone] Fibromyalgia Social History Tobacco Use Types Packs/Day [...] Description 02/04/2025 9:45 AM EDT Office Visit [facility] MEDICINE 230 [place] [address] 04/03/2025 1:00 PM EDT Office Visit [facility] OPTOMETRY [address] [place] [address] Richard, Oanh, OD 230 [place] [address] documented as of this encounter Visit Diagnoses Diagnosis Fibromyalgia Unspecified myalgia and myositis documented in this encounter Additional Health Concerns Assessment Noted Time PHQ-9 Depression Total Score: 16 025 10:56 AM EST documented as of this encounter Care Teams Sterilisation Technician Relationship Specialty Start Date End Date Rima Sequeira MD [address] [place] [address] PCP - General Family Medicine 11/06/18 documented as of this encounter
--- OUTSIDE RECORDS SUMMARY | 2024-12-17 14:07 | XMS_ITS | Clinical Summary ---
Author Organization [facility] Address 175 [place] [address] Phone Care Team Providers Care Dog Walker Name Role Phone Rima Sequeira MD Primary Care Provide r Social History Tobacco Use Types Packs/Day Years Used Date Smoking Tobacco: Never Assessed Comments Unknown Sex and Gender Information Value Date Recorded Sex Assigned at Not on file Legal Sex Female 11:45 PM EST Gender Identity Not on file Sexual Orientation Not on file Plan of Treatment Upcoming Encounters Date Type Department Care Team ([facility] Contact Info) Description 02/10/2025 1:30 PM EDT Consult Orthopedic Surgery - [place] [phone] [phone] Danny Shaffer, DPM [address] [address] Health Maintenance Due Date Last Done Comments Breast Cancer Screening 1978 Diabetes: Annual GFR (Glomer ular Filtration Rate) 1978 Diabetes: Annual Foot Exam 01/10/1988 Diabetes: Annual Retina Eye Exam 01/10/1988 DTaP,Tdap,and Td Vaccines (1 - Tdap) 1997 Hepatitis B Vaccines (1 of 3 - 19+ 3-dose series) 1997 Pneumococcal Vaccine: Pediat rics (0 to 5 Years) and At-Risk Patients (6 to 64 Years) (1 of 2 - PCV) 1997 Cervical Cancer Screening: P ap Smear 1999 COVID-19 Vaccine ( - 2023-2 5 season) 2024 Influenza Vaccine (#1) 2024 Cholesterol Screening (Lipid Panel) 11/29/2024 Colorectal Cancer Screening: Colonoscopy 11/29/2024 Depression Screening 11/29/2024 Diabetes: Annual Urine Albumin-Creatinine Ratio (uACR) 11/29/2024 Diabetes: Blood Sugar Contro l Test (HGBA1C) 11/29/2024 HIV Screening 11/29/2024 Hepatitis C Screening 11/29/2024 Social Influencers of Health Screening 11/29/2024 HIB Vaccines Aged Out No longer eligi [...] on patient's age to complete this topic MMR Vaccines Aged Out No longer eligi ble based on patient's age to complete this topic Meningococcal ACWY Vaccine Aged Out N o longer eligible based on patient's age to complete this topic Meningococcal B Vacine Aged Out No lo nger eligible based on patient's age to complete this topic RSV Immunization Patients Un lacie 20 months Aged Out No longer eligible b ased on patient's age to complete this topic Varicella Vaccines Aged Out No longer eligible based on patient's age to complete this topic Insurance [facility] [place] [place] [id number] MEDICA[place] Care Teams Dog Walker Relationship Specialty Start Date End Date Rima Sequeira MD [address] [phone] PCP - General Internal Medicine 11/29/24
== END 2024-12-17 14:40 | disposition home or self-care (01) ==
LOC: HO.HWS 13:08
PROVIDERS: PCP Internal Medicine; Visit Provider Obstetrics & Gynecology
DX: N93.9 Abnormal uterine and vaginal bleeding, unspecified (principal)
CPT/HCPCS: 99213

== ENCOUNTER → 2024-12-17 13:08 | Outpatient (BNVA) | payer MEDICAID, SELFPAY | PROVIDERS: PCP Internal Medicine; Visit Provider Obstetrics & Gynecology | DX: N93.9 Abnormal uterine and vaginal bleeding, unspecified (principal) | CPT/HCPCS: 99212 ==

== ENCOUNTER 2025-04-16 09:11 | Outpatient (AMB) | payer MEDICAID, SELFPAY ==
--- NOTE | 2025-04-16 09:13 | A.OFFVIS_ITS ---
Vital Signs 04/16/25 09:18 Height 5 ft 5 in Weight 180 lb BMI 30.0 BP 118/72 Intake Visit Reasons: CORNER CUTTER annual exam/DO NOT RS Carpenters Supervisor Required: Yes Carpenters Supervisor Language: Pressure Testing Technician Services: Carpenters Supervisor Present (in person) Carpenters Supervisor Name: ANGELITA Otoole Information Interpreted: non-clinical & clinical Frit Coater: Frit Coater Present (ANGELITA Otoole) Accompanied by: Self / Same As Patient Allergies nitrofurantoin Allergy (Unknown, Verified 04/16/25 09:20) Unknown HPI Comments Details: Presenting for annual exam. No complaints. Last Pap/HPV was negative in 04/20 Last Mammogram was BI-RADS 1 in 02/20 No previous screening colonoscopy PFSH Medical History Lumbar radiculopathy, chronic Chronic pain syndrome Panic attack History of depression History of anxiety Surgical History H/O: hysterectomy Hx of cholecystectomy Hx of tubal ligation Hx of section Family History Paternal Grandmother History of breast cancer Female Reproductive History Menstrual Age of Menarche: 8 Total pregnancies: 6 Full term: 6 Date of Mammogram: 02/15/24 (bi rad 1) Review of Systems Const All systems reviewed & are unremarkable except as noted in HPI and below Card Reports as per HPI Resp Reports as per HPI GI Reports as per HPI and Reports no additional complaints Reports as per HPI Physical Exam Const General: cooperative, healthy appearing and comfortable Chest Chest palpation & inspection: normal inspection of the chest and normal palpation of entire chest wall Breast/axilla inspection: normal inspection of the breasts and normal inspection of the axillae Breast/axilla palpation: normal palpation of the breasts, normal palpation of the axillae and no axillary lymphadenopathy Resp Effort & Inspection: normal respiratory effort Auscultation: clear to auscultation bilaterally Percussion: percussion normal Cardio Palpation: normal PMI Rate: regular rate Rhythm: regular rhythm Heart sounds: no murmurs and no rubs Peripheral pulses: Peripheral pulses 2+ throughout GI Inspection: Yes normal to inspection Palpation (GI): Soft to palpation, nontender, no guarding, not rigid and No hepatosplenomegaly present Percussion: Yes normal to percussion Auscultation: normal bowel sounds Rectal Exam - Female: deferred General: Yes bladder normal to palpation External Female Exam: No lesion Speculum Exam - Vagina: normal appearance of the vagina, normal palpation, normal vaginal discharge and not erythematous Speculum Exam - Cervix: Cervix absent Bimanual exam- vagina & uterus: normal bimanual exam, normal palpation, bladder normal to palpation and uterus absent Bimanual Exam- Adnexa, other: normal adnexae, no masses and no tenderness Assessment & Plan Assessment & Plan (1) Well woman exam: Code(s): Z01.419 - Encounter for gynecological examination (general) (routine) without abnormal findings Category: Medical Plan: Cotesting not indicated. Mammogram ordered. GI referral for screening colonoscopy placed Counseled the patient about the recommended dietary allowance of 1000 mg of Calcium & 600 IU of vitamin D. The patient was instructed to perform monthly self-breast exams and to schedule an annual exam in a year; All questions answered and the patient verbalized understanding. Instructed the patient to schedule annual exam in a year Orders: Orders MM tomosynthesis screening BI Today Z12.31 - Encounter for screening mammogram for malignant neoplasm of breast Referrals Gastroenterology Referral Z12.11 - Encounter for screening for malignant neoplasm of colon Coding Level of Care Code Est Pt Prev Care 40-64y([address]) Diagnoses Well woman exam Z01.419
[2025-04-16 09:18] VITALS: BP 118/72
--- OUTSIDE RECORDS SUMMARY | 2025-04-16 09:58 | XMS_ITS | Encounter Summary ---
Author Organization [employer] [facility] Address [address] [place] [address] 7 [place] [address] Care Team Providers Care Import Dispatcher Name Role Phone Rima Sequeira MD Primary Care Provide r Encounter Details Date Type Department Care Team ([facility] Contact Info) Description 07/27/2023 Orders Only [facility] MEDICINE [address] [place] [address] Provider, Historical, Social History Tobacco Use Types Packs/Day Years [...] Care Team (Late st Contact Info) Description 05/06/2025 9:45 AM EDT Office Visit [address] [address] documented as of this encounter Procedures Procedure [...] documented as of this encounter Care Teams Import Dispatcher Relationship Specialty Start Date End Date Rima Sequeira MD 230 [place] [address] PCP - General Family Medicine 11/06/18 documented as of this encounter
== END 2025-04-16 09:32 | disposition home or self-care (01) ==
LOC: HO.HWS 09:11
PROVIDERS: PCP Internal Medicine; Visit Provider Obstetrics & Gynecology
DX: Z01.419 Encounter for gynecological examination (general) (routine) without abnormal findings (principal)
CPT/HCPCS: 99396; 99459

== ENCOUNTER → 2025-04-16 09:11 | Outpatient (BNVA) | payer MEDICAID, SELFPAY | PROVIDERS: PCP Internal Medicine; Visit Provider Obstetrics & Gynecology | DX: Z01.419 Encounter for gynecological examination (general) (routine) without abnormal findings (principal); Z98.51 Tubal ligation status; Z90.710 Acquired absence of both cervix and uterus; Z98.891 History of uterine scar from previous surgery | CPT/HCPCS: 99396 ==

== ENCOUNTER 2025-04-23 09:13 | Outpatient (REF) | payer MEDICAID, SELFPAY ==
--- OUTSIDE RECORDS SUMMARY | 2025-04-23 10:02 | XMS_ITS | Encounter Summary ---
Author Organization [employer] Address [address] [place] [address] 7 [place] [address] Care Team Providers Care Life Science Teacher Name Role Phone Rima Sequeira MD Primary Care Provide r Encounter Details Date Type Department Care Team (Late Contact Info) Description 07/27/2023 Orders Only [facility] MEDICINE [address] [place] [address] [phone] Provider, MD Gabriela Social History Tobacco Use [...] Department Care Team (Late Contact Info) Description 05/06/2025 9:45 AM EDT Office Visit [facility] MEDICINE 230 [place], [place] [phone] 06/02/2025 10:00 AM EDT Office Visit [facility] OPTOMETRY [address] [place] [address] Oanh Ramos, OD 230 [place] [address] 07/25/2025 11:30 AM EDT Office Visit [facility] MEDICINE [address] [place] [phone] Rima Sequeira MD 230 [place], [place] [phone] documented as of this encounter Procedures Procedure [...] documented as of this encounter Care Teams Life Science Teacher Relationship Specialty Start Date End Date Rima Sequeira MD 230 [place] [address] PCP - General Family Medicine 11/06/18 documented as of this encounter
[2025-04-23 11:10] LABS: MANUAL DIFF FLAG NO
[2025-04-23 11:15] LABS: Basophils Percent Auto 0.4 % (0-2); Eosinophils Absolute Auto 0.2 X10*3/uL (0.0-0.4); Eosinophils Percent Auto 2.1 % (0-4); Hemoglobin 13.6 g/dl (12.0-16.0); Imm Gran Abs Auto 0.05 X10*3/uL (0.00-0.03); Imm Gran Pct Auto 0.5 % (0.0-0.4); Lymphocytes Absolute Auto 3.3 X10*3/uL (1.2-4.9); Lymphocytes Percent Auto 30.9 % (20-40); Mean Corpuscular Hemoglobin 28.9 pg (27.0-33.0); Mean Corpuscular Volume 84.9 fL (80.0-98.0); Mean Platelet Volume 10.8 fL (9.4-12.3); Monocytes Absolute Auto 0.7 X10*3/uL (0.1-1.2); Monocytes Percent Auto 6.8 % (2-11); Neutrophils Absolute Auto 6.3 x10*3/uL (2.0-8.3); Neutrophils Percent Auto 59.3 % (45-73); Platelet Count 353 X10*3/uL (160-400); Red Blood Count 4.71 X10*6/uL (4.20-5.50); Red Cell Distribution Width 13.4 % (11.0-16.0); White Blood Count 10.7 X10*3/uL (4.8-10.8)
[2025-04-23 11:55] LABS: Creatinine Urine 167.38 mg/dL; Microalbum/Creatinine Ratio Ur 11.9 ug/mg cr (<30)
[2025-04-23 11:56] LABS: Alanine Aminotransferase 59 U/L (0-31); Albumin Level 3.9 g/dL (3.5-5.0); Alkaline Phosphatase 112 U/L (39-117); Anion Gap 11 (12-20); Aspartate Amino Transferase 36 U/L (5-31); Bilirubin Total 0.4 mg/dL (0.0-1.0); Blood Urea Nitrogen 10 mg/dL (9-16); Calcium 9.1 mg/dL (8.4-10.2); Carbon Dioxide 25 mmol/L (22-29); Chloride 109 mmol/L (96-108); Cholesterol 170 mg/dL (<200); Estimated Glomerular Filt Rate > 60; Glucose Random 117 mg/dL (60-115); HDL Cholesterol 33 mg/dL (>40); LDL Cholesterol Calculated 117 mg/dL (<100); Potassium 3.9 mmol/L (3.3-5.1); Sodium 141 mmol/L (135-145); Total Protein 6.9 g/dL (6.5-8.0); Triglycerides 103 mg/dL (<150)
[2025-04-23 11:57] LABS: Vitamin D 25-OH Total 46.7 ng/mL (>30)
[2025-04-24 07:59] LABS: ~HepC Num1 0.13 S/CO (0.00-0.79)
[2025-04-24 08:00] LABS: HIV AB/AG Nonreactive (Nonreactive); HIV Num 1 0.06 S/CO (0.00-0.99); ~Hepatitis C Antibody Nonreactive (Nonreactive)
== END 2025-04-23 09:14 | disposition home or self-care (01) ==
LOC: HO.HHCL 09:13
PROVIDERS: PCP Internal Medicine; Visit Provider Internal Medicine
DX: E11.65 Type 2 diabetes mellitus with hyperglycemia (principal); Z11.4 Encounter for screening for human immunodeficiency virus [HIV]
CPT/HCPCS: 36415; 80053; 80061; 82043; 82306; 82570; 84443; 85025; 86803; 87389